=== PATIENT | female | born 1935 | race Caucasian/White ===

== ENCOUNTER 2018-02-04 13:36 | Observation (INO) | payer OTHER ==
[~2018-02-04] VITALS: Ht 152.4 cm; Wt 75.3 kg
[~2018-02-04 13:36] MED LIST: ASPI81TA28 PO; ATEN-173 PO; CLR10 PO; FLUT50SP14 NAE; FRS/40 PO; GLC/500 PO; IBUP-1050 PO; LEVO25TA PO; LISI5TAB3 PO; POTA10LI PO; PRAV40TA PO; PRLSR20 PO; TYLC/3 PO
--- NOTE | 2018-02-04 13:58 | EMERGENCY ROOM VISIT NOTE ---
History Report prepared by Pan: Itz Villarreal Under the Supervision of: Dr. Dav Castaneda M.D. First contact with patient: 13:46 Chief Complaint: DIZZY Stated Complaint: FATIGUE,DRY MOUTH,DIZZY History of Present Illness The patient is a 82 year old female who presents to the Emergency Room with complaints of constant, severe fatigue for the past week. The patient notes taking her blood pressure and pulse yesterday which were 98/49 and 51 respectively. She reports experiencing dry mouth and watery eyes. The patient feels that she is keeping up with her fluids. The patient states that she has blood work done on Monday where she was told that her blood is thin. She notes that she has not taken her Lasix for the past two days. The patient reports taking Lasix 40mg BID as a blood thinner and Coumadin secondary to her history of Afib. She has not had any changes in her medication recently. The patient denies experiencing any chest pain,shortness of breath, blood or black color in stool, fevers, chills, urinary symptoms, falls, or confusion. She reports a history of well controlled diabetes. Source of History: patient Onset: 1 week ago. Position: other (Global ) Symptom Intensity: severe Quality: other (fatigue ) Timing: constant Modifying Factors (Worsening): other (none) Modifying Factors (Relieving): other (none) Associated Symptoms: No fevers, No chills, No chest pain, No SOB, No melena , No urinary symptoms Note: Denies: Falls, confusion. Review of Systems See HPI for pertinent positives & negatives. A total of 10 systems reviewed and were otherwise negative. Past Medical & Surgical Medical Problems: (1) Chest pain (2) Nonspecific ST-T wave electrocardiographic changes Old medical records were reviewed. Nurse's notes were reviewed and I agree with. Family History No pertinent family history Social History Smoking Status: Never Smoker Drug Use: none Marital Status: Occupation Status: retired Current/Historical Medications Scheduled Aspirin (Aspirin Ec), 81 MG PO HS Atenolol (Tenormin), 50 MG PO HS Furosemide (Lasix), 40 MG PO BID Levothyroxine Sodium (Synthroid), 1 TAB PO DAILY Lisinopril (Zestril), 5 MG PO DAILY Pantoprazole (Protonix), 40 MG PO DAILY Potassium Chloride (Potassium Chloride), 1.5 TSP PO DAILY Warfarin Sod (Coumadin), 5 MG PO HS Scheduled PRN Fluticasone Propionate (Flonase Nasal [place]), 2 SPRAYS [place] DAILY PRN Loratadine (Claritin), 10 MG PO DAILY PRN for ALLERGIES Allergies Coded Allergies: Oxycodone (Verified Adverse Reaction, Unknown, "MAKES ME FEEL GOOFY", 11/05) Physical Exam Vital Signs Date Time Temp Pulse Resp B/P (MAP) Pulse Ox O2 Delivery O2 Flow Rate FiO2 02/04/18 15:19 68 18 131/73 91 Room Air 02/04/18 13:42 36.7 67 18 153/72 92 Room Air Physical Exam General: Non-ill appearing older female in no acute distress. HEENT: Normal cephalic atraumatic. Pupils are equal round and reactive to light. Extraocular movements are intact. Oropharynx is pink with moist mucous membranes. No swelling of the mouth lips or tongue. Neck: Supple with a midline trachea. No meningeal signs or stiffness, no JVD or bruits. No Stridor. Chest: Clear to auscultation bilaterally. No wheezes or rhonchi. No increased work of breathing. Heart: regular rate and rhythm. Abdomen: Soft nontender, nondistended without rebound guarding or rigidity. Extremities: No cyanosis clubbing or edema. No calf tenderness or assymetry Spine/Back. Non tender to palpation. No CVA tenderness Skin: Good turgor without rashes. Neurologic exam: Cranial nerves two through 12 are intact. Motor and sensation are intact and symmetrical throughout. Medical Decision & Procedures ER Provider Diagnostic Interpretation: Radiology results as stated below per my review and radiologist interpretation: CHEST ONE VIEW PORTABLE CLINICAL HISTORY: CHEST PAIN dyspnea COMPARISON STUDY: 11/05/2015 FINDINGS: Mild cardiomegaly. Prominent pulmonary vasculature. Diaphragms are smooth. Costophrenic angles are sharp. IMPRESSION: Congestive heart failure The above report was generated using voice recognition software. It may contain grammatical, syntax or spelling errors. Electronically signed by: Syd Ariza M.D. 02/04/2018 2:12 PM Dictated Date/Time: 02/04/2018 2:11 PM HEAD WITHOUT CONTRAST (CT) CT DOSE: 569.73 mGy.cm HISTORY: Mental status change eval for dizziness TECHNIQUE: Multiaxial CT images of the head were performed without the use of intravenous contrast. A dose lowering technique was utilized adhering to the principles of ALARA. Comparison: None. Findings: The paranasal sinuses and mastoid air cells are clear. The calvarium and skull base are intact. The ventricles and sulci are within normal limits. There is no mass, hematoma, midline shift, or acute infarct. Age-related chronic small vessel change. Impression: No acute intracranial abnormality. Age-related chronic small vessel change. The above report was generated using voice recognition software. It may contain grammatical, syntax or spelling errors. Electronically signed by: Syd Ariza M.D. 02/04/2018 2:30 PM Dictated Date/Time: 02/04/2018 2:29 PM Laboratory Results Test 02/04/18 14:10 02/04/18 14:15 02/04/18 14:21 Urine Color YELLOW Urine Appearance CLEAR (CLEAR) Urine pH 8.0 (4.5-7.5) Urine Specific [place] 1.007 (1.000-1.030) Urine Protein NEG (NEG) Urine Glucose (UA) NEG (NEG) Urine Ketones NEG (NEG) Urine Occult Blood NEG (NEG) Urine Nitrite NEG (NEG) Urine Bilirubin NEG (NEG) Urine Urobilinogen NEG (NEG) Urine Leukocyte Esterase SMALL (NEG) Urine WBC (Auto) 1-5 /hpf (0-5) Urine RBC (Auto) 0-4 /hpf (0-4) Urine Hyaline Casts (Auto) 0 /lpf (0-5) Urine Epithelial Cells (Auto) 10-20 /lpf (0-5) Urine Bacteria (Auto) NEG (NEG) Activated Partial Thromboplast Time 33.4 SECONDS (21.0-31.0) Partial Thromboplastin Ratio 1.3 Magnesium Level 2.0 mg/dl (1.8-2.4) Direct Bilirubin 0.1 mg/dl (0-0.2) Total Creatine Kinase 36 U/L (26-192) Creatine Kinase MB 0.8 ng/ml (0.5-3.6) Creatine Kinase MB Ratio 2.2 (0-3.0) Pro-B-Type Natriuretic Peptide 1646 pg/ml (0-1800) Lipase 111 U/L (73-393) Thyroid Stimulating Hormone (TSH) 2.360 uIu/ml (0.300-4.500) Thyroxine (T4) 10.1 mcg/dl (4.5-10.9) Bedside Troponin I < 0.030 ng/ml (0-0.045) Date/Time Source Procedure Growth Status 02/04/18 14:10 Urine , Clean Catch Urine Culture - Final MORE THAN THREE TYPES OF ORGANISMS OR... Complete Laboratory studies as stated above per my review. Medications Administered Medications (Trade) Dose Ordered Sig/Rosi Route Start Time Stop Time Status Last Admin Dose Admin Potassium Chloride (Klor-Con Tab) 40 meq NOW STAT PO 02/04/18 15:47 02/04/18 15:49 DC 02/04/18 16:12 40 MEQ Furosemide (Lasix Inj) 20 mg NOW STAT IV 02/04/18 16:00 02/04/18 16:01 DC 02/04/18 16:13 20 MG ECG Per My Interpretation Indication: weakness Rate (beats per minute): 64 Rhythm: normal sinus Findings: other (Old inferirior infarct changes. Nonspecific st changes. ) Comparison ECG Date: Nov 06 2015 Change: Compared to November 06 2015, non-specific st changes are now present. ED Course 1346: Past medical records reviewed. The patient was evaluated in room C5, and a complete history and physical examination were performed. 1547: Ordered Potassium Chloride 40meq PO. 1554: I offered to admit the patient for her CHF. She does not want to be admitted and will discuss her decision with her family 1600: Ordered Furosemide 20mg IV. ' 1605: The patient is willing to be admitted. 1610: I discussed the patient's case with Dr. Trevor Kemp Hospitalist. He will evaluate the patient for further treatment and care. Medical Decision Differentials include, but are not limited to; anemia, intracranial process, infection, electrolyte or metabolic abnormality. This patient comes in as described above. She was placed in room C5. She has generalized weakness and some shortness of breath mostly with exertion. She looks well on exam. She has not been feeling herself lately. IV access established, EKG, chest x-ray and CAT scan of her head was obtained. She has extensive workup for weakness. Her potassium was mildly low at 3.2 but otherwise she has no acute electrolyte or metabolic abnormalities. Her EKG does have some nonspecific ST abnormalities which do appear more pronounced when compared to old. Her chest x-ray also suggests congestive heart failure component as well. She was given IV Lasix. She has no acute neurologic deficits and a CAT scan of her head is unremarkable. She has nothing to suggest infection or sepsis. I do think she needs to be admitted for diuresis and further treatment and evaluation and cardiac evaluation. I have discussed the case with Dr. Hilario who saw the patient and will admit her for these measures. Medication Reconcilliation Current Medication List: was personally reviewed by me Blood Pressure Screening Patient's blood pressure: Normal blood pressure Consults Time Called: 1605 Consulting Physician: Dr. Trevor Kemp Hospitalist Returned Call: [phone]: I discussed the patient's case with Dr. Trevor Kemp Hospitalist. He will evaluate the patient for further treatment and care. Impression Primary Impression: Weakness Additional Impression: CHF (congestive heart failure) Scribe Attestation The scribe's documentation has been prepared under my direction and personally reviewed by me in its entirety. I confirm that the note above accurately reflects all work, treatment, procedures, and medical decision making performed by me. Departure Information Dispostion Being Evaluated By Surgeon Prescriptions Warfarin Sod (Coumadin) 5 Mg Tab 5 MG PO HS for 5 Days, #1 TAB Prov: Ralph Hilario M.D. 02/05/18 Referrals Yuridia Gutierrez M.D. (PCP) Patient Instructions My [facility] Problem Qualifiers
--- NOTE | 2018-02-04 14:13 | DIAGNOSTIC IMAGING REPORT ---
CHEST ONE VIEW PORTABLE CLINICAL HISTORY: CHEST PAIN dyspnea COMPARISON STUDY: 11/05/2015 FINDINGS: Mild cardiomegaly. Prominent pulmonary vasculature. Diaphragms are smooth. Costophrenic angles are sharp. IMPRESSION: Congestive heart failure The above report was generated using voice recognition software. It may contain grammatical, syntax or spelling errors. Electronically signed by: Syd Ariza M.D. 02/04/2018 2:12 PM Dictated Date/Time: 02/04/2018 2:11 PM
[2018-02-04 14:22] LABS: BASO % 0.1 %; BASO ABS # 0.01 K/uL (0-0.2); EOS % 0.9 %; EOS ABS # 0.07 K/uL (0-0.5); HEMATOCRIT 40.3 % (37-47); IG# 0.02 K/uL (0.00-0.02); LYMPH % 19.2 %; LYMPH ABS # 1.57 K/uL (1.2-3.4); MEAN CELL VOLUME 89.4 fL (80-100); MEAN CORPUSCULAR HEMOGLOBIN 28.8 pg (25-34); MEAN CORPUSCULAR HGB CONC 32.3 g/dl (32-36); MEAN PLATELET VOLUME 9.7 fL (7.4-10.4); MONO % 8.4 %; MONO ABS # 0.69 K/uL (0.11-0.59); NEUT % 71.2 %; NEUT ABS # 5.81 K/uL (1.4-6.5); PLATELET COUNT 226 K/uL (130-400); RED CELL DISTRIBUTION WIDTH CV 14.6 % (11.5-14.5); RED CELL DISTRIBUTION WIDTH SD 47.9 fL (36.4-46.3); WHITE BLOOD COUNT 8.17 K/uL (4.8-10.8)
[2018-02-04 14:31] LABS: INR 1.7 (0.9-1.1); PTT PATIENT 33.4 SECONDS (21.0-31.0)
--- NOTE | 2018-02-04 14:31 | DIAGNOSTIC IMAGING REPORT ---
HEAD WITHOUT CONTRAST (CT) CT DOSE: 569.73 mGy.cm HISTORY: Mental status change eval for dizziness TECHNIQUE: Multiaxial CT images of the head were performed without the use of intravenous contrast. A dose lowering technique was utilized adhering to the principles of ALARA. Comparison: None. Findings: The paranasal sinuses and mastoid air cells are clear. The calvarium and skull base are intact. The ventricles and sulci are within normal limits. There is no mass, hematoma, midline shift, or acute infarct. Age-related chronic small vessel change. Impression: No acute intracranial abnormality. Age-related chronic small vessel change. The above report was generated using voice recognition software. It may contain grammatical, syntax or spelling errors. Electronically signed by: Syd Ariza M.D. 02/04/2018 2:30 PM Dictated Date/Time: 02/04/2018 2:29 PM
[2018-02-04 14:39] LABS: ALBUMIN 3.1 gm/dl (3.4-5.0); CALCIUM 8.4 mg/dl (8.5-10.1); CREATININE 0.93 mg/dl (0.60-1.20); POTASSIUM 3.2 mmol/L (3.5-5.1)
[2018-02-04 14:50] LABS: CKMB 0.8 ng/ml (0.5-3.6); TOTAL PROTEIN 7.6 gm/dl (6.4-8.2)
[2018-02-04] MEDS ORDERED: PANT40TA PO (15:22)
[2018-02-04] MEDS ORDERED: POTASSIUM CHLORIDE 20 MEQ TABCR PO STA (15:47)
[2018-02-04] MEDS ORDERED: FUROSEMIDE 40 MG/4 ML VIAL IV STA (16:00)
[2018-02-04 16:39] VITALS: O2SAT 91; Ht 152.4 cm; Wt 75.3 kg
[2018-02-04] MEDS ORDERED: IV FLUIDS COMPLETED PRN (16:45)
--- NOTE | 2018-02-04 16:46 | History and Physical ---
History & Physical Date & Time of Service: Feb 04, 2018 at 16:44 Chief Complaint: Fatigue,Dry Mouth,Dizzy Primary Care Physician: Yuridia Gutierrez M.D. History of Present Illness Source: patient, family This is an 82 year old Female with recent cardiac history as summarized above in outpatient 12/28/17 cardiology notes by CAROL Naidu (see assessment and plan section). At that outpatient visit there were plans to do Holter monitor but this was not done yet. And patient presents to the hospital with generalized malaise (described as feel less energy and sleepy), denies chest pain, generally denies shortness of breath (but used albuterol inhaler before sleep yesterday before sleep just in case to help with breathing better with sleeping), denies home oxygen use, denies CPAP use, denies rhinorrhea, denies fever, denies significant lower extremity swelling,and found to have mild CHF exacerbation based on elevated BNP and some pulmonary infiltrates on CXR and mild lower extremity edema. Also noted to have non-specific ST changes when current EKG is compared to that of November 06, 2015 as per the ED physician however patient has had more recent 2017 EKGs as outpatient under [facility] records and Holter monitoring results in 2017. In the ED patient breathing on room air. Patient was about to be given 20 mg IV Lasix when examined by hospitalist physician Past Medical/Surgical History Medical Problems: (1) Chest pain (2) Chest wall pain (3) Nonspecific ST-T wave electrocardiographic changes Family History No pertinent family history Social History Smoking Status: Never Smoker Drug Use: none Marital Status: Occupational Status: retired Immunizations History of Influenza Vaccine: Yes Influenza Vaccine Date: Sep 02, 2015 History of Pneumococcal: Yes Allergies Coded Allergies: Oxycodone (Verified Adverse Reaction, Unknown, "MAKES ME FEEL GOOFY", 11/05) Home Medications Scheduled Aspirin (Aspirin Ec), 81 MG PO HS Atenolol (Tenormin), 50 MG PO HS Furosemide (Lasix), 40 MG PO BID Levothyroxine Sodium (Synthroid), 1 TAB PO DAILY Lisinopril (Zestril), 5 MG PO DAILY Metformin Hcl (Glucophage), 500 MG PO DAILY Omeprazole (Prilosec), 20 MG PO DAILY Pantoprazole (Protonix), 40 MG PO DAILY Potassium Chloride (Potassium Chloride), 1.5 TSP PO DAILY Scheduled PRN Fluticasone Propionate (Flonase Nasal [place]), 2 SPRAYS [place] DAILY PRN Loratadine (Claritin), 10 MG PO DAILY PRN for ALLERGIES Review of Systems Constitutional: + fatigue, No fever Eyes: No worsening of vision, No eye pain, No redness, No discharge, No diplopia, No problem reported ENT: No unusual epistaxis, No nasal symptoms, No sore throat, No trouble swallowing Respiratory: + shortness of breath, No cough, No sputum Cardiovascular: No chest pain, No edema, No palpitations Abdomen: + problem reported (abdominal discomfort after eating), No nausea, No vomiting, No diarrhea, No constipation Musculoskeletal: No joint pain, No swelling, No calf pain Genitourinary - Female: No dysuria Neurologic: No numbness/tingling Psychiatric: No substance abuse Endocrine: + fatigue Hematologic / Lymphatic: No abnormal bleeding/bruising Integumentary: No rash, No itch Physical Exam Vital Signs Date Time Temp Pulse Resp B/P (MAP) Pulse Ox O2 Delivery O2 Flow Rate FiO2 02/04/18 15:19 68 18 131/73 91 Room Air 02/04/18 13:42 36.7 67 18 153/72 92 Room Air General Appearance: WD/WN, no apparent distress Head: normocephalic, atraumatic Eyes: normal inspection, EOMI, sclerae normal ENT: normal ENT inspection, hearing grossly normal, pharynx normal Neck: supple, no adenopathy, no JVD, no carotid bruits, trachea midline Respiratory/Chest: chest non-tender, lungs clear, normal breath sounds, no respiratory distress, no accessory muscle use Cardiovascular: regular rate, rhythm, no edema, no JVD, normal peripheral pulses Abdomen/GI: normal bowel sounds, non tender, soft, no organomegaly Back: normal inspection, no muscle spasm, normal range of motion Extremities/Musculoskelatal: normal inspection, no calf tenderness, normal range of motion, + pertinent finding (trace edema of bilateral lower extremities ) Neurologic/Psych: materials intern II-XII nml as tested, alert, normal mood/affect, oriented x 3 Skin: normal color, warm/dry, no rash Diagnostics Laboratory Results Results Past 24 Hours Test 02/04/18 13:55 02/04/18 14:10 02/04/18 14:15 02/04/18 14:21 Range/Units Creatine Kinase MB Ratio 2.2 0-3.0 Urine Color YELLOW Urine Appearance CLEAR CLEAR Urine pH 8.0 4.5-7.5 Urine Specific [place] 1.007 1.000-1.030 Urine Protein NEG NEG Urine Glucose (UA) NEG NEG Urine Ketones NEG NEG Urine Occult Blood NEG NEG Urine Nitrite NEG NEG Urine Bilirubin NEG NEG Urine Urobilinogen NEG NEG Urine Leukocyte Esterase SMALL NEG Urine WBC (Auto) 1-5 0-5 /hpf Urine RBC (Auto) 0-4 0-4 /hpf Urine Hyaline Casts (Auto) 0 0-5 /lpf Urine Epithelial Cells (Auto) 10-20 0-5 /lpf Urine Bacteria (Auto) NEG NEG White Blood Count 8.17 4.8-10.8 K/uL Red Blood Count 4.51 4.2-5.4 M/uL Hemoglobin 13.0 12.0-16.0 g/dL Hematocrit 40.3 37-47 % Mean Corpuscular Volume 89.4 80-100 fL Mean Corpuscular Hemoglobin 28.8 25-34 pg Mean Corpuscular Hemoglobin Concent 32.3 32-36 g/dl Platelet Count 226 130-400 K/uL Mean Platelet Volume 9.7 7.4-10.4 fL Neutrophils (%) (Auto) 71.2 % Lymphocytes (%) (Auto) 19.2 % Monocytes (%) (Auto) 8.4 % Eosinophils (%) (Auto) 0.9 % Basophils (%) (Auto) 0.1 % Neutrophils # (Auto) 5.81 1.4-6.5 K/uL Lymphocytes # (Auto) 1.57 1.2-3.4 K/uL Monocytes # (Auto) 0.69 0.11-0.59 K/uL Eosinophils # (Auto) 0.07 0-0.5 K/uL Basophils # (Auto) 0.01 0-0.2 K/uL RDW Standard Deviation 47.9 36.4-46.3 fL RDW Coefficient of Variation 14.6 11.5-14.5 % Immature Granulocyte % (Auto) 0.2 % Immature Granulocyte # (Auto) 0.02 0.00-0.02 K/uL Prothrombin Time 18.1 9.0-12.0 SECONDS Prothromb Time International Ratio 1.7 0.9-1.1 Activated Partial Thromboplast Time 33.4 21.0-31.0 SECONDS Partial Thromboplastin Ratio 1.3 Sodium Level 138 136-145 mmol/L Potassium Level 3.2 3.5-5.1 mmol/L Chloride Level 97 98-107 mmol/L Carbon Dioxide Level 35 21-32 mmol/L Anion Gap 6.0 3-11 mmol/L Blood Urea Nitrogen 12 7-18 mg/dl Creatinine 0.93 0.60-1.20 mg/dl Est Creatinine Clear Calc Drug Dose 44.5 ml/min Estimated GFR () 67.3 Estimated GFR (Non- 58.0 BUN/Creatinine Ratio 12.6 10-20 Random Glucose 94 70-99 mg/dl Calcium Level 8.4 8.5-10.1 mg/dl Total Bilirubin 0.6 0.2-1 mg/dl Direct Bilirubin 0.1 0-0.2 mg/dl Aspartate Amino Transf (AST/SGOT) 14 15-37 U/L Alanine Aminotransferase (ALT/SGPT) 20 12-78 U/L Alkaline Phosphatase 137 45-117 U/L Total Creatine Kinase 36 26-192 U/L Creatine Kinase MB 0.8 0.5-3.6 ng/ml Pro-B-Type Natriuretic Peptide 1646 0-1800 pg/ml Total Protein 7.6 6.4-8.2 gm/dl Albumin 3.1 3.4-5.0 gm/dl Lipase 111 73-393 U/L Thyroid Stimulating Hormone (TSH) 2.360 0.300-4.500 uIu/ml Bedside Troponin I < 0.030 0-0.045 ng/ml Test 02/04/18 16:38 Range/Units Microbiology Results 02/04/18 Urine Culture, Received Pending Impression Assessment and Plan Outpatient 12/28/17 cardiology notes reviewed "Cardiac History: 1.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 Aortic valve replacement (#23 Morgan II), Ascending aorta graft replacement (#26 Gel weave), coronary artery bypass x 1 (aorta-PDA) 2.History of post operative heart failure and atrial fibrillation. 3.History of delayed healing of sternotomy and saphenous vein harvest site. 4.Recurrent atrial fibrillation observed in August 2016 resulting in acute decompensated heart failure. Referral for direct current cardioversion declined. 5.CHADS2 Score 4/6 6.Chronic coumadin anticoagulation, initiated in August 2016. 7.Hypertension 8.Dyslipidemia Last hospitalization was to [facility] November 05, 2015 to November 06, 2015 with atypical chest pain. EKG was without acute changes. Cardiac enzymes were negative. Resting echocardiogram revealed normal LV chamber size with mild concentric LVH, normal LV systolic function, EF 55%-60%, abnormal septal wall motion consistent with postoperative state. Wall motion was otherwise normal. There was grade 2 diastolic dysfunction. The bioprosthetic aortic valve was well seated with with normal gradients. Dobutamine stress echocardiogram was negative for inducible ischemia or arrhythmias prior to discharge. ASSESSMENT: 1.Chronic atrial fibrillation, ? With an adequately controlled ventricular response. 2.Chronic coumadin anticoagulation 3.Compensated diastolic heart failure signs and symptoms. 4.Aortic valvular disease, aortic root aneurysm, and ASCVD status post aortic valve replacement (#23 Morgan II), ascending aorta graft reconstruction and replacement (#26 Gel weave), coronary artery bypass x 1 (aorta-PDA) on 04/08/05. 5.Status post closure of foramen ovale on 04/08/05. 6.GERD RECOMMENDATIONS/PLAN: 1.Decrease Lisinopril to 2.5 mg/day secondary to mild hypotension (? Symptomatic ) 2.Increase Protonix to twice a day to aid GI symptoms. Recommend further evaluation if GI symptoms persist 3.24-hour holter monitor prior to next evaluation. If the ventricular response is excessive will add digoxin 125 mcg every OTHER day. 4.Retrial of statin therapy (previously unable to tolerate atorvastatin secondary to myalgias) declined. 5.TTE to be considered at follow-up. 6.Cardiology follow-up in 2-3 months or as needed. 7.ER with emergencies. " Assessment and Plan for hospital observation: This is an 82 year old Female with recent cardiac history as summarized above in outpatient 12/28/17 cardiology notes by CAROL Naidu (see above). At that outpatient visit there were plans to do Holter monitor but this was not done yet. And patient presents to the hospital with generalized malaise (described as feel less energy and sleepy), denies chest pain, generally denies shortness of breath (but used albuterol inhaler before sleep yesterday before sleep just in case to help with breathing better with sleeping), denies home oxygen use, denies CPAP use, denies rhinorrhea, denies fever, denies significant lower extremity swelling, and found to have mild CHF exacerbation based on elevated BNP and some pulmonary infiltrates on CXR and mild lower extremity edema. Also noted to have non-specific ST changes when current EKG is compared to that of November 06, 2015 as per the ED physician however patient has had more recent 2017 EKGs as outpatient under [facility] records and Holter monitoring results in 2017. In the ED patient breathing on room air. Patient was about to be given 20 mg IV Lasix when examined by hospitalist physician mild CHF exacerbation -Lasix 20 mg IV given in the ED , continue Lasix as 40 mg IV BID for now, will repeat CXR tomorrow and likely will not need to continue BID IV lasix -admission of hypokalemia, replace potassium, and monitor electrolytes while on increased diuretics -initial troponin negative, monitor patient on telemetry with 2 more troponins and trend with EKG in case there is acute coronary syndrome versus arrhythmia or conduction abnormalities -obtain echocardiogram -continue home dose atenolol and aspirin -consult [facility] affiliated inpatient Cardiology as they follow the patient as outpatient for further recommendations History of atrial fibrillation on anticoagulation -Patient takes coumadin 5 mg HS at home -admission INR 1.7, continue coumadin and trend INR, target is 2 to 3 Monitor renal function while on diuretics COPD -has albuterol inhaler at home -nebulizers as needed if shortness of breath Diabetes Mellitus -hold home dose metformin -insulin sliding scale, check [id number] history of Hypothyroidism -check TSH with T4 labs -continue home dose levothyroxine for now DVT ppx, INR 1.7 on coumadin, continue coumadin, start SCDs Full Code Family daughter [phone], Resuscitation Status VTE Prophylaxis Will order VTE Prophylaxis: Yes
[2018-02-04] MEDS ORDERED: GLUCOSE 10 TABS/TUBE PO PRN (17:00)
[2018-02-04] MEDS ORDERED: GLUCOSE 40% GEL 15 GM TUBE PO PRN (17:00)
[2018-02-04] MEDS ORDERED: HEPARIN SOD 5000 UNIT/0.5 ML CARP SQ SCH (17:00)
[2018-02-04] MEDS ORDERED: DEXTROSE 50% 50 ML SYR IV PRN (17:00)
[2018-02-04] MEDS ORDERED: GLUCAGON FOR INJ 1 MG VIAL SQ PRN (17:00)
[2018-02-04 17:15] VITALS: O2SAT 92
[2018-02-04 17:44] VITALS: BP 144/66; PULSE 63; TEMP 37; O2SAT 93
[2018-02-04] MEDS ORDERED: ALBUTEROL 0.083% NEBU SOLN 3 ML VIAL INH PRN (17:45)
[2018-02-04 19:47] VITALS: BP 121/69; PULSE 67; TEMP 37.2; O2SAT 93
[2018-02-04] MEDS ORDERED: ACETAMINOPHEN 325 MG TAB ONE (20:09)
[2018-02-04] MEDS ORDERED: ACETAMINOPHEN 325 MG TAB PO PRN (20:15)
[2018-02-04] MEDS: FUROSEMIDE INJ 40 MG in SYRINGE 0 ML IV SCH (20:26)
[2018-02-04 20:41] LABS: POTASSIUM 3.5 mmol/L (3.5-5.1)
[2018-02-04] MEDS: INSULIN ASPART 100 UNITS/ML 3 ML PEN SC SCH (21:00)
[2018-02-04] MEDS ORDERED: WARFARIN SOD 5 MG TAB PO SCH (21:00)
[2018-02-04] MEDS ORDERED: ASPIRIN 81 MG ECTAB PO SCH (21:00)
[2018-02-04] MEDS ORDERED: POTASSIUM CHLORIDE 10 MEQ TABCR PO STA (22:00)
[2018-02-04 23:24] VITALS: BP 143/77; PULSE 60; TEMP 36.9; O2SAT 93
[2018-02-05 02:38] LABS: BASO % 0.2 %; BASO ABS # 0.02 K/uL (0-0.2); EOS % 1.7 %; EOS ABS # 0.17 K/uL (0-0.5); HEMATOCRIT 38.9 % (37-47); HEMOGLOBIN 12.8 g/dL (12.0-16.0); IG# 0.04 K/uL (0.00-0.02); LYMPH % 21.9 %; LYMPH ABS # 2.15 K/uL (1.2-3.4); MEAN CORPUSCULAR HEMOGLOBIN 29.3 pg (25-34); MEAN CORPUSCULAR HGB CONC 32.9 g/dl (32-36); MEAN PLATELET VOLUME 9.4 fL (7.4-10.4); MONO % 10.8 %; MONO ABS # 1.06 K/uL (0.11-0.59); NEUT ABS # 6.36 K/uL (1.4-6.5); PLATELET COUNT 219 K/uL (130-400); RED CELL DISTRIBUTION WIDTH CV 14.5 % (11.5-14.5); RED CELL DISTRIBUTION WIDTH SD 47.5 fL (36.4-46.3)
[2018-02-05 02:56] LABS: INR 1.6 (0.9-1.1)
[2018-02-05 02:58] LABS: ALBUMIN 2.9 gm/dl (3.4-5.0); ALT/SGPT 17 U/L (12-78); AST/SGOT 12 U/L (15-37); BLOOD UREA NITROGEN 15 mg/dl (7-18); CALCIUM 8.9 mg/dl (8.5-10.1); CARBON DIOXIDE 33 mmol/L (21-32); CREATININE 0.89 mg/dl (0.60-1.20); GLUCOSE 110 mg/dl (70-99); POTASSIUM 3.7 mmol/L (3.5-5.1); SODIUM 137 mmol/L (136-145)
[2018-02-05 03:03] LABS: ALKALINE PHOSPHATASE 123 U/L (45-117); TOTAL PROTEIN 7.1 gm/dl (6.4-8.2)
[2018-02-05 04:25] VITALS: BP 108/48; PULSE 51; TEMP 37; O2SAT 93
[2018-02-05] MEDS ORDERED: LEVOTHYROXINE 25 MCG TAB PO SCH (06:00)
[2018-02-05] MEDS: INSULIN ASPART 100 UNITS/ML 3 ML PEN SC SCH ×2 (07:00→11:00)
[2018-02-05 07:37] VITALS: BP 151/67; PULSE 60; TEMP 36.8; O2SAT 92
[2018-02-05 08:47] LABS: HEMOGLOBIN A1C 6.5 % (4.5-5.6)
[2018-02-05] MEDS: FUROSEMIDE INJ 40 MG in SYRINGE 0 ML IV SCH (08:47)
[2018-02-05] MEDS ORDERED: PANTOprazole SOD 40 MG TAB PO SCH (09:00)
[2018-02-05] MEDS ORDERED: NURSING VERBAL MED ORDER ONE (09:00)
[2018-02-05] MEDS ORDERED: LISINOPRIL 5 MG TAB PO SCH ×2 (09:00→21:00)
--- NOTE | 2018-02-05 09:25 | ECHOCARDIOGRAM REPORT ---
*NOTICE TO RECEIVING [employer] This information is strictly Confidential and protected under [place] law. [place] law prohibits you from making any further disclosure of this information unless further disclosure is expressly permitted by the written consent of the person to whom it pertains or is authorized by law. A general authorization for the release of medical or other information is not sufficient for this purpose. Hospital accepts no responsibility if the information is made available to any other person, INCLUDING THE PATIENT. Interpretation Summary * Name: CHANEL COE Study Date: 02/05/2018 06:21 AM BP: 108/48 mmHg * Patient Location: [facility] HR: 64 * : 1935 (M/d/yyyy) Gender: Female Height: 60 in * Age: 82 yrs Ethnicity: CA Weight: 172 lb * Ordering Physician: Ralph Hilario * Performed By: Iza Bernstein RCS * * Reason For Study: CHF / EKG CHANGES * BSA: 1.8 m2 * The study was technically adequate. * Compared to prior study, there is no significant change. * -- Conclusions -- * Ejection Fraction = 60-65%. * There is mild concentric left ventricular hypertrophy. * Septal motion is consistent with post-operative state. * There is a bioprosthetic aortic valve. * Bioprosthetic aortic valve leaflets are poorly visualized. * No significant bioprosthetic aortic valve regurgitation. * The gradient is normal for this prosthetic aortic valve. * There is mild tricuspid regurgitation. Procedure Details * A complete two-dimensional transthoracic echocardiogram was performed (2D, M-mode, Doppler and color flow Doppler). Left Ventricle * The left ventricle is normal in size. * There is mild concentric left ventricular hypertrophy. * The basal septum is thickened and angulated consistent with sigmoid septum. * Left ventricular systolic function is normal. * Ejection Fraction = 60-65%. * Septal motion is consistent with post-operative state. Right Ventricle * The right ventricle is normal size. * The right ventricular systolic function is normal as assessed by tricuspid annular plane systolic excursion (TAPSE) (normal >1.5 cm). Atria * The left atrium is mildly dilated. * Right atrial size is normal. * There is no evidence of atrial septal defect, but resolution does not allow assessment for a patent foramen ovale. Mitral Valve * There is mild mitral annular calcification. * There is no mitral valve stenosis. * There is trace mitral regurgitation. Tricuspid Valve * The tricuspid valve is normal. * There is no tricuspid stenosis. * There is mild tricuspid regurgitation. * Doppler findings do not suggest pulmonary hypertension. Aortic Valve * There is a bioprosthetic aortic valve. * Bioprosthetic aortic valve leaflets are poorly visualized. No significant bioprosthetic aortic valve regurgitation. * The gradient is normal for this prosthetic aortic valve. Pulmonic Valve * The pulmonary valve is inadequately visualized, but the Doppler data is adequate for interpretation. * There is no pulmonic valvular stenosis. * Trace pulmonic valvular regurgitation. Great Vessels * The aortic root and proximal ascending aorta are normal sized. Pericardium/Pleural * There is no pericardial effusion. Great Vessels * Normal inferior vena cava diameter and respiratory variation suggests normal central venous pressure. Left Ventricular Diastolic Function * Pulse wave TDI of the anterior and posterior mitral annulas demonstrates abnormal LV relaxation MMode 2D Measurements and Calculations IVSd 1.2 cm IVSs 1.5 cm LVIDd 4.3 cm LVIDs 2.6 cm LVPWd 1.3 cm LVPWs 1.4 cm IVS/LVPW 0.91 FS 40.2 % EDV(Teich) 83.9 ml ESV(Teich) 24.2 ml EF(Teich) 71.2 % EDV(cubed) 80.5 ml ESV(cubed) 17.2 ml EF(cubed) 78.6 % % IVS thick 33.2 % % LVPW thick 12.1 % LV mass(C)d 188.3 grams LV mass(C)dI 107.6 grams/m\S\2 LV mass(C)s 127.7 grams LV mass(C)sI 72.9 grams/m\S\2 SV(Teich) 59.7 ml SI(Teich) 34.1 ml/m\S\2 SV(cubed) 63.3 ml SI(cubed) 36.2 ml/m\S\2 Ao root diam 2.8 cm Ao root area 6.2 cm\S\2 LA dimension 3.9 cm LA/Ao 1.4 LVOT diam 2.2 cm LVOT area 3.7 cm\S\2 LVAd ap4 30.0 cm\S\2 LVLd ap4 7.7 cm EDV(MOD-sp4) 93.4 ml EDV(sp4-el) 99.0 ml LVAs ap4 18.8 cm\S\2 LVLs ap4 7.0 cm ESV(MOD-sp4) 40.8 ml ESV(sp4-el) 42.9 ml EF(MOD-sp4) 56.4 % EF(sp4-el) 56.7 % LVAd ap2 27.0 cm\S\2 LVLd ap2 6.7 cm EDV(MOD-sp2) 87.4 ml EDV(sp2-el) 92.4 ml LVAs ap2 17.1 cm\S\2 LVLs ap2 6.2 cm ESV(MOD-sp2) 39.1 ml ESV(sp2-el) 40.5 ml EF(MOD-sp2) 55.2 % EF(sp2-el) 56.2 % LVLd %diff -15.95 % EDV(MOD-bp) 97.5 ml LVLs %diff -14.12 % ESV(MOD-bp) 42.8 ml EF(MOD-bp) 56.1 % SV(MOD-sp4) 52.6 ml SI(MOD-sp4) 30.1 ml/m\S\2 SV(MOD-sp2) 48.3 ml SI(MOD-sp2) 27.6 ml/m\S\2 SV(MOD-bp) 54.7 ml SI(MOD-bp) 31.3 ml/m\S\2 SV(sp4-el) 56.1 ml SI(sp4-el) 32.0 ml/m\S\2 SV(sp2-el) 51.9 ml SI(sp2-el) 29.6 ml/m\S\2 Doppler Measurements and Calculations MV E max stalin 144.5 cm/sec MV A max stalin 57.7 cm/sec MV E/A 2.5 MV P1/2t max stalin 154.4 cm/sec MV P1/2t 72.3 msec MVA(P1/2t) 3.0 cm\S\2 MV dec slope 625.9 cm/sec\S\2 MV dec time 0.20 sec Ao V2 max 166.9 cm/sec Ao max PG 11.1 mmHg Ao max PG (full) 7.2 mmHg TR(V,A) 2.2 cm\S\2 TR(V,D) 2.2 cm\S\2 LV V1 max PG 4.0 mmHg LV V1 max 99.8 cm/sec MR max stalin 445.2 cm/sec MR max PG 79.3 mmHg PA V2 max 94.9 cm/sec PA max PG 3.6 mmHg TR max stalin 247.1 cm/sec
--- NOTE | 2018-02-05 10:13 | Cardiology Consultation ---
Cardiology Consultation Date of Service Feb 05, 2018. (Zaida Stallings PA-C) Cardiology Consultation Requesting Physician: Dr. Hilario Attending Lead Level Designer: Dr. Bello History of Present Illness: Atiya Short is an 82 year old female who is followed by Lourdes Naidu PA-C of [facility] as an outpatient. She presented to [place] yesterday for evaluation for generalized complaints of "weakness, fatigue and not feeling well" x 1 week. She denies specific complaints of recent chest pain. She reports chronic dyspnea, relatively unchanged. She notes chronic cough, unchanged. No recent worsening LE edema or weight gain at home. Weight is down from last clinic evaluation. She reports intermittent dizziness with hypotensive readings at home. No syncope. She admits to poor PO intake of food/drinks recently. Lisinopril had been reduced last office visit due to hypotension. She was also to have 24 hour Holter to assess afib rates, but this was not completed. She believed she had an 'infection" as she was just "run down". No urinary symptoms. No fever or chills. she reports chronic 2-3 pillow orthopnea, unchanged. She reports she does not sleep well at night and therefore very fatigued during the day. In ER, chest xray read as mild CHF. BNP normal limits for age. EKG revealed non specific ST/T wave abnormality and demonstrated sinus bradycardia, no significant change from previous. Cardiac enzymes unremarkable. WBC and Hbg ok. She was treated with IV furosemide and supplemental potassium. At time of consult, patient reports not sleeping well and is very fatigued, but otherwise denies acute complaints of chest pain, SOB, orthopnea, PND or increased edema. No dizziness, palpitations, syncope or near syncope. No fever, cough, chills. Review of systems: Complete Review of Systems is as stated above or negative. PMH/Cardiac History: 1. 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 Aortic valve replacement (#23 Morgan II), Ascending aorta graft replacement (#26 Gel weave), coronary artery bypass x 1 (aorta-PDA) 2. History of post operative heart failure and atrial fibrillation. 3. History of delayed healing of sternotomy and saphenous vein harvest site. 4. Recurrent atrial fibrillation observed in August 2016 resulting in acute decompensated heart failure. Referral for direct current cardioversion declined. 5. CHADS2 Score 01/19 6. Chronic Coumadin anticoagulation, initiated in August 2016. 7. Hypertension 8. Dyslipidemia 9. Breast CA 10.COPD, moderate (HCC) 11. Chronic diastolic HF (heart failure) ([facility]) I50.32 12. Type 2 diabetes mellitus with diabetic neuropathy, unspecified ([facility]) E11.40 Past Surgical History: Procedure Laterality Date CATHETERIZE LEFT HEART THRU SKIN 02/24/05 severe aortic stenosis and CAD - [facility] - Dr. Osborne CORONARY ARTERY BYPASS, SINGLE 04/08/05 " DIST FIB FX W/O MAN 07/15/96 Ankle Fx left lateral malleolar DRAINAGE OF RECTAL ABSCESS 01/06/98 Dr. Peterson LAPAROSCOPY TOTAL HYSTX, UTERUS 250GM OR LESS TUBE/OVARY 11/05/2013 LAPAROSCOPIC HYSTERECTOMY REMOVAL TUBES AND OVARIES FOR UTERUS 250GM OR LESS performed by Lexis Bernstein, at OR [facility] DRAINAGE BREAST CYST 02/06/97 Breast Biopsy left REMOVAL OF BREAST, MODIFIED RADICAL Left 02/26/97 Mastectomy, Mod Radical left REPAIR W SYNTH GRAFT,CH W/BYPA " " REPLACEMENT AORTIC VALVE, BYPASS WITH PROSTHETIC VALVE 04/08/05 AVR#[id number],AscAortGraft,PDA,CABx1 - [place] SIGMOIDOSCOPY, DIAGNOSTIC 03/16/98 normal Family History: Mother had an [place] at 63, at age 80 with CHF. Father had a CVA in his 70's. Two brothers, one killed in an accident. The other at 80 with multiple medical problems. Three sisters without cardiac problems. Two sons and three daughters without cardiac issues. Social History: Prior tobacco abuse, quit in 2004 She smoked for 40 years, up to 1 ppd. Alcohol: None anymore. She quit drinking in 2004. . Lives alone. Retired [employer] Inspector, Natalie Escamilla Review of patient's allergies indicates: Allergen Reactions Percocet SOB Current Outpatient Prescriptions Reported Home Medications Medications Dose Route/Sig Max Daily Dose Days Date Category Protonix (Pantoprazole Sodium) 40 Mg Tab 40 Mg PO DAILY 02/04/18 Reported Synthroid (Levothyroxine Sodium) 25 Mcg Tab 1 Tab PO DAILY 30 11/05/15 Reported Tenormin (Atenolol) 25 Mg Tab 50 Mg PO HS 11/05/15 Reported Aspirin Ec (Aspirin) 81 Mg Tab 81 Mg PO HS 10/29/13 Reported Claritin (Loratadine) 10 Mg Tab 10 Mg PO DAILY PRN 10/29/13 Reported Flonase Nasal [place] (Fluticasone Propionate) 120 Sprays/6000 Mcg Inha 2 Sprays [place] DAILY PRN 10/29/13 Reported Prilosec (Omeprazole) 20 Mg Capcr 20 Mg PO DAILY 10/29/13 Reported Lasix (Furosemide) 40 Mg Tab 40 Mg PO BID 10/29/13 Reported Glucophage (Metformin Hcl) 500 Mg Tab 500 Mg PO DAILY 10/29/13 Reported Zestril (Lisinopril) 5 Mg Tab 5 Mg PO DAILY 10/29/13 Reported Potassium Chloride 20 Meq/15 Ml Elix 1.5 Tsp PO DAILY 10/29/13 Reported OBJECTIVE/PHYSICAL EXAMINATION: Last 8 Hrs Date Time Temp Pulse Resp B/P (MAP) Pulse Ox O2 Delivery O2 Flow Rate FiO2 02/05/18 07:37 36.8 60 20 151/67 (95) 92 Room Air 02/05/18 04:25 37.0 51 21 108/48 (68) 93 Room Air 02/05/18 04:00 Room Air GEN: A+Ox3. NAD Conjunctiva pink, sclera clear. ? Right carotid bruit versus transmitted systolic ejection murmur. JVD. Heart: Irregularly irregular in the lower 90's. Grade II/ systolic ejection murmur. No diastolic murmur. Normal S1. Normal S2. No S3. No rub. PMI is nondisplaced. Lungs: Diminished but clear. Abdomen: +BS. Soft. Nontender. No masses or organomegaly. Extremities: Mild edema. No clubbing. No cyanosis. Limited neurological examination is without focal deficits. Pulses: radial=2/4, posterior tibial=2/4. DATA: EKG on admission NSR at 64 bpm, 1st degree AV block RSR, consistent with right conduction delay ST/T wave abnormality in inferior and anterior leads. Repeat EKG this AM 02/05/18: Sinus bradycardia at 59 bpm, 1st degree AV block. ST/T wave abnormality in anterior leads, improving Telemetry reviewed - NSR, Sinus bradycardia in the 50's. one short episode of PAF occurring last evening last about 15 beats. Imaging: Head CT - no acute abnormalities Chest xray: mild pulm vascular congestion Prior Data from 10/2015 - Echo completed at [place] - normal LV chamber size with mild concentric LVH, normal LV systolic function, EF 55%-60%, abnormal septal wall motion consistent with postoperative state. Wall motion was otherwise normal. There was grade 2 diastolic dysfunction. The bioprosthetic aortic valve was well seated with with normal gradients. Dobutamine stress echocardiogram was negative for inducible ischemia ASSESSMENT: 1. Generalized fatigue/malaise/weakness 2. Possible mild decompensated diastolic HF, improved with several doses of IV furosemide 3. Mild ST/T wave abnormality in anterior leads. Negative cardiac enzymes. No chest pain 4. paroxysmal atrial fib, currently NSR on beta faheem and chronic anticoagulation 5. History of aortic stenosis, aortic root aneurysm, and ASCVD status post aortic valve replacement (#23 Morgan II), ascending aorta graft reconstruction and replacement (#26 Gel weave), coronary artery bypass x 1 (aorta-PDA) on . 6. Status post closure of foramen ovale on 04/08/05. 7. Statin intolerance, patient declined retrial in the past 8. Hypertension - with recent hypotension noted. RECOMMENDATIONS/PLAN: 1. Patient does not examine as volume overload currently. Would transition back to oral diuretics today to prevent volume depletion 2. await echo results 3. Given mild non specific ST/T wave changes in anterior leads, consider nuclear stress test (inpatient vs outpatient). Cardiac enzymes unremarkable. 4. consider sleep med evaluation 5. Agree with increasing lisinopril back to 5 mg for elevated BP Case to be discussed with Dr. Bello. Will follow. (Zaida Stallings, FREDDYC) Cardiology Attending Physician: Patient seen and examined at the bedside. Denies chest discomfort or unusual shortness of breath. Reports fatigue and malaise. States she suffered a gastrointestinal illness approximately 3 weeks ago and has not recovered since that time. Functional opacity unchanged. No orthopnea, PND, or lower extremity edema. She is able to sleep for 24 hours a night prior to awakening for urination. No palpitations, lightheadedness, dizziness, syncope, or near syncope. Family present at bedside. PE: VSS. gen: NAD, AAOx3. heart: reg, Normal S1S2. Lungs: clear B/L. No R/R/W. Ext: No clubbing, cyanosis, or edema. A/P: Agree with above PA-C history, physical exam, assessment and plan. Recommend outpatient Lexiscan nuclear stress testing for further risk stratification. No further inpatient cardiac testing at this time. Cardiology will sign off. Please call with questions. Reji Bello DO, FACC (Yogi Bello DO)
--- NOTE | 2018-02-05 11:35 | DIAGNOSTIC IMAGING REPORT ---
CHEST 2 VIEWS ROUTINE CLINICAL HISTORY: follow up CXR for CHF after diuresis COMPARISON STUDY: Chest radiograph February 04, 2018. FINDINGS: Note is made of median sternotomy wires and a prosthetic cardiac valve, likely aortic. Moderate cardiomegaly is noted. There is no pneumothorax or pleural effusion. No consolidation is identified. Linear left basilar opacity is suggestive of atelectasis. Pulmonary edema has improved since previous exam. IMPRESSION: Interval improvement in pulmonary edema. Electronically signed by: Pj Kovacs M.D. 02/05/2018 11:33 AM Dictated Date/Time: 02/05/2018 11:32 AM
[2018-02-05 11:37] VITALS: BP 160/90; PULSE 62; TEMP 36.4; O2SAT 92
[2018-02-05] MEDS ORDERED: CMD5 PO (13:20)
--- NOTE | 2018-02-05 13:22 | Progress Note ---
Internal Med Progress Note Date of Service: Feb 05, 2018. Provider Documentation: SUBJECTIVE: Patient breathing on room air. Denies shortness of breath. Denies chest pain OBJECTIVE: General Appearance: WD/WN, no apparent distress Head: normocephalic, atraumatic Eyes: normal inspection, EOMI, sclerae normal ENT: normal ENT inspection, hearing grossly normal, pharynx normal Neck: supple, no adenopathy, no JVD, no carotid bruits, trachea midline Respiratory/Chest: chest non-tender, lungs clear, normal breath sounds, no respiratory distress, no accessory muscle use Cardiovascular: regular rat Abdomen/GI: normal bowel sounds, non tender, soft Back: normal inspection, no muscle spasm, normal range of motion Extremities/Musculoskelatal: normal inspection, no calf tenderness, normal range of motion ASSESSMENT & PLAN: Fatigue secondary to mild decompensated diastolic HF, improved with several doses of IV furosemide -admission "CXR Mild cardiomegaly. Prominent pulmonary vasculature. Diaphragms are smooth. Costophrenic angles are sharp. IMPRESSION: Congestive heart failure " -admission BNP 1646 -patient received IV Lasix on ED presentation and overnight and on discharge day -follow up CXR: Pulmonary edema has improved since previous exam. -patient to be discharged on her home dose oral diuretic medication -patient encouraged to limit salty foods Mild ST/T wave abnormality in anterior leads. Negative cardiac enzymes. No chest pain -Dr. Johnson, business professor, recommend outpatient Lexiscan nuclear stress testing for further risk stratification. No further inpatient cardiac testing at this time. Outpatient Lexiscan and sleep medicine evaluation can be arranged by primary care doctor History of atrial fibrillation on anticoagulation -admission INR 1.7 and 5 mg coumadin was given with INR 1.6 on discharge day -as per patient she had been taking less coumadin recently because her INR was high before -patient should take 5 mg coumadin daily for 5 days or at least until next INR check for adjustments -[facility] appointment line [phone] COPD history -has albuterol inhaler at home -Patient should follow up with primary care doctor whether albuterol is sufficient -consider sleep med evaluation as outpatient as per cardiology Diabetes Mellitus HbA1c 6.5 checked in the hospital -continue metformin as outpatient history of Hypothyroidism -check TSH 2.36 with T4 10.1 while on 25 mcg daily Levothyroxine -continue home dose levothyroxine and follow up with primary care doctor Patient is discharged to home with follow up to 02/06/2018 6:15 PM [facility] 02/09/2018 11:40 AM Mahesh Thomason MD Internal Medicine [facility] (Outpatient Lexiscan and sleep medicine evaluation can be arranged by primary care doctor) [facility] appointment line [phone] for any scheduling reasons patient should take 5 mg coumadin daily for 5 days or at least until next INR check for adjustments Vital Signs: Date Time Temp Pulse Resp B/P (MAP) Pulse Ox O2 Delivery O2 Flow Rate FiO2 02/05/18 11:45 Room Air 02/05/18 11:37 36.4 62 20 160/90 (113) 92 Room Air 02/05/18 07:37 36.8 60 20 151/67 (95) 92 Room Air 02/05/18 07:30 Room Air 02/05/18 04:25 37.0 51 21 108/48 (68) 93 Room Air 02/05/18 04:00 Room Air 02/05/18 00:01 Room Air 02/04/18 23:24 36.9 60 18 143/77 (99) 93 Room Air 02/04/18 20:00 Room Air 02/04/18 19:47 37.2 67 18 121/69 (86) 93 Room Air 02/04/18 17:44 37.0 63 18 144/66 (92) 93 Room Air 02/04/18 17:15 36.7 67 18 139/68 92 02/04/18 17:13 67 18 139/68 92 02/04/18 16:39 91 Room Air 02/04/18 15:19 68 18 131/73 91 Room Air 02/04/18 13:42 36.7 67 18 153/72 92 Room Air Lab Results: Results Past 24 Hours Test 02/04/18 13:55 02/04/18 14:10 02/04/18 14:15 02/04/18 14:21 Range/Units Creatine Kinase MB Ratio 2.2 0-3.0 Urine Color YELLOW Urine Appearance CLEAR CLEAR Urine pH 8.0 4.5-7.5 Urine Specific [place] 1.007 1.000-1.030 Urine Protein NEG NEG Urine Glucose (UA) NEG NEG Urine Ketones NEG NEG Urine Occult Blood NEG NEG Urine Nitrite NEG NEG Urine Bilirubin NEG NEG Urine Urobilinogen NEG NEG Urine Leukocyte Esterase SMALL NEG Urine WBC (Auto) 1-5 0-5 /hpf Urine RBC (Auto) 0-4 0-4 /hpf Urine Hyaline Casts (Auto) 0 0-5 /lpf Urine Epithelial Cells (Auto) 10-20 0-5 /lpf Urine Bacteria (Auto) NEG NEG White Blood Count 8.17 4.8-10.8 K/uL Red Blood Count 4.51 4.2-5.4 M/uL Hemoglobin 13.0 12.0-16.0 g/dL Hematocrit 40.3 37-47 % Mean Corpuscular Volume 89.4 80-100 fL Mean Corpuscular Hemoglobin 28.8 25-34 pg Mean Corpuscular Hemoglobin Concent 32.3 32-36 g/dl Platelet Count 226 130-400 K/uL Mean Platelet Volume 9.7 7.4-10.4 fL Neutrophils (%) (Auto) 71.2 % Lymphocytes (%) (Auto) 19.2 % Monocytes (%) (Auto) 8.4 % Eosinophils (%) (Auto) 0.9 % Basophils (%) (Auto) 0.1 % Neutrophils # (Auto) 5.81 1.4-6.5 K/uL Lymphocytes # (Auto) 1.57 1.2-3.4 K/uL Monocytes # (Auto) 0.69 0.11-0.59 K/uL Eosinophils # (Auto) 0.07 0-0.5 K/uL Basophils # (Auto) 0.01 0-0.2 K/uL RDW Standard Deviation 47.9 36.4-46.3 fL RDW Coefficient of Variation 14.6 11.5-14.5 % Immature Granulocyte % (Auto) 0.2 % Immature Granulocyte # (Auto) 0.02 0.00-0.02 K/uL Prothrombin Time 18.1 9.0-12.0 SECONDS Prothromb Time International Ratio 1.7 0.9-1.1 Activated Partial Thromboplast Time 33.4 21.0-31.0 SECONDS Partial Thromboplastin Ratio 1.3 Sodium Level 138 136-145 mmol/L Potassium Level 3.2 3.5-5.1 mmol/L Chloride Level 97 98-107 mmol/L Carbon Dioxide Level 35 21-32 mmol/L Anion Gap 6.0 3-11 mmol/L Blood Urea Nitrogen 12 7-18 mg/dl Creatinine 0.93 0.60-1.20 mg/dl Est Creatinine Clear Calc Drug Dose 44.5 ml/min Estimated GFR () 67.3 Estimated GFR (Non- 58.0 BUN/Creatinine Ratio 12.6 10-20 Random Glucose 94 70-99 mg/dl Calcium Level 8.4 8.5-10.1 mg/dl Magnesium Level 2.0 1.8-2.4 mg/dl Total Bilirubin 0.6 0.2-1 mg/dl Direct Bilirubin 0.1 0-0.2 mg/dl Aspartate Amino Transf (AST/SGOT) 14 15-37 U/L Alanine Aminotransferase (ALT/SGPT) 20 12-78 U/L Alkaline Phosphatase 137 45-117 U/L Total Creatine Kinase 36 26-192 U/L Creatine Kinase MB 0.8 0.5-3.6 ng/ml Pro-B-Type Natriuretic Peptide 1646 0-1800 pg/ml Total Protein 7.6 6.4-8.2 gm/dl Albumin 3.1 3.4-5.0 gm/dl Lipase 111 73-393 U/L Thyroid Stimulating Hormone (TSH) 2.360 0.300-4.500 uIu/ml Thyroxine (T4) 10.1 4.5-10.9 mcg/dl Bedside Troponin I < 0.030 0-0.045 ng/ml Test 02/04/18 17:40 02/04/18 20:14 02/04/18 20:57 02/05/18 02:24 Range/Units Bedside Glucose 103 124 70-90 mg/dl Potassium Level 3.5 3.7 3.5-5.1 mmol/L Estimated Average Glucose 140 mg/dl Hemoglobin A1c 6.5 4.5-5.6 % Troponin I < 0.015 < 0.015 0-0.045 ng/ml White Blood Count 9.80 4.8-10.8 K/uL Red Blood Count 4.37 4.2-5.4 M/uL Hemoglobin 12.8 12.0-16.0 g/dL Hematocrit 38.9 37-47 % Mean Corpuscular Volume 89.0 80-100 fL Mean Corpuscular Hemoglobin 29.3 25-34 pg Mean Corpuscular Hemoglobin Concent 32.9 32-36 g/dl Platelet Count 219 130-400 K/uL Mean Platelet Volume 9.4 7.4-10.4 fL Neutrophils (%) (Auto) 65.0 % Lymphocytes (%) (Auto) 21.9 % Monocytes (%) (Auto) 10.8 % Eosinophils (%) (Auto) 1.7 % Basophils (%) (Auto) 0.2 % Neutrophils # (Auto) 6.36 1.4-6.5 K/uL Lymphocytes # (Auto) 2.15 1.2-3.4 K/uL Monocytes # (Auto) 1.06 0.11-0.59 K/uL Eosinophils # (Auto) 0.17 0-0.5 K/uL Basophils # (Auto) 0.02 0-0.2 K/uL RDW Standard Deviation 47.5 36.4-46.3 fL RDW Coefficient of Variation 14.5 11.5-14.5 % Immature Granulocyte % (Auto) 0.4 % Immature Granulocyte # (Auto) 0.04 0.00-0.02 K/uL Prothrombin Time 16.3 9.0-12.0 SECONDS Prothromb Time International Ratio 1.6 0.9-1.1 Sodium Level 137 136-145 mmol/L Chloride Level 99 98-107 mmol/L Carbon Dioxide Level 33 21-32 mmol/L Anion Gap 5.0 3-11 mmol/L Blood Urea Nitrogen 15 7-18 mg/dl Creatinine 0.89 0.60-1.20 mg/dl Est Creatinine Clear Calc Drug Dose 46.5 ml/min Estimated GFR () 70.9 Estimated GFR (Non- 61.2 BUN/Creatinine Ratio 16.5 10-20 Random Glucose 110 70-99 mg/dl Calcium Level 8.9 8.5-10.1 mg/dl Total Bilirubin 0.6 0.2-1 mg/dl Aspartate Amino Transf (AST/SGOT) 12 15-37 U/L Alanine Aminotransferase (ALT/SGPT) 17 12-78 U/L Alkaline Phosphatase 123 45-117 U/L Total Protein 7.1 6.4-8.2 gm/dl Albumin 2.9 3.4-5.0 gm/dl Globulin 4.2 2.5-4.0 gm/dl Albumin/Globulin Ratio 0.7 0.9-2 Test 02/05/18 06:31 02/05/18 11:25 Range/Units Bedside Glucose 106 106 70-90 mg/dl Microbiology Results 02/04/18 Urine Culture, Received Pending
--- NOTE | 2018-02-05 13:45 | Discharge Instructions ---
Discharge Instructions Date of Service Feb 05, 2018. Admission Reason for Admission: Chf, Nonspecific St-T Wave Electrocardiographic Ch Discharge Discharge Diagnosis / Problem: Fatigue secondary to mild decompensated diastolic HF Discharge Goals Goal(s): Improve function, Increase independence, Improve disease control Activity Recommendations Activity Limitations: per Instructions/Follow-up section Shower/Bathe: no limitations . Instructions / Follow-Up Instructions / Follow-Up Fatigue secondary to mild decompensated diastolic HF, improved with several doses of IV furosemide -admission "CXR Mild cardiomegaly. Prominent pulmonary vasculature. Diaphragms are smooth. Costophrenic angles are sharp. IMPRESSION: Congestive heart failure " -admission BNP 1646 -patient received IV Lasix on ED presentation and overnight and on discharge day -follow up CXR: Pulmonary edema has improved since previous exam. -patient to be discharged on her home dose oral diuretic medication -patient encouraged to limit salty foods Mild ST/T wave abnormality in anterior leads. Negative cardiac enzymes. No chest pain -Dr. Johnson, supervisor grinding, recommend outpatient Lexiscan nuclear stress testing for further risk stratification. No further inpatient cardiac testing at this time. Outpatient Lexiscan and sleep medicine evaluation can be arranged by primary care doctor History of atrial fibrillation on anticoagulation -admission INR 1.7 and 5 mg coumadin was given with INR 1.6 on discharge day -as per patient she had been taking less coumadin recently because her INR was high before -patient should take 5 mg coumadin daily for 5 days or at least until next INR check for adjustments -[facility] appointment line [phone] COPD history -has albuterol inhaler at home -Patient should follow up with primary care doctor whether albuterol is sufficient -consider sleep med evaluation as outpatient as per cardiology Diabetes Mellitus HbA1c 6.5 checked in the hospital -continue metformin as outpatient history of Hypothyroidism -check TSH 2.36 with T4 10.1 while on 25 mcg daily Levothyroxine -continue home dose levothyroxine and follow up with primary care doctor Patient is discharged to home with follow up to 02/06/2018 6:15 PM [facility] 02/09/2018 11:40 AM Mahesh Thomason MD Internal Medicine [facility] (Outpatient Lexiscan and sleep medicine evaluation can be arranged by primary care doctor) [facility] appointment line [phone] for any scheduling reasons patient should take 5 mg coumadin daily for 5 days or at least until next INR check for adjustments Call your Primary Care doctor if any of the following symptoms or problems start or get worse: * Shortness of breath or difficulty breathing * Wake up at night short of breath * Chest pain * Cough * Swelling of your hands, feet, or legs * More fatigued or tired with your normal activity * Palpitations - sudden fast heart beats WEIGHT * Weigh yourself every morning after using the bathroom. * Use the same scale. * Wear the same amount of clothing. * Write your weight down on a chart. * Call your Primary Care doctor if you gain more than 2-3 pounds in 1-2 days. MEDICATIONS * Use this discharge instruction sheet for medication instructions. * Take your medications at the time your doctor ordered. * Do not skip a dose of your medicines. * If you miss a dose of medicine, take it as soon as possible, but DO NOT DOUBLE A DOSE. * Read your medicine information when you get home. * Know all of the side effects of your medicine. If in doubt, ask your pharmacist * Call your Primary Care doctor's office if you have any side effects. * Be sure all of your doctors know what medicine and herbs you take (including cold, flu, and herbal medicine). Take the following with you to your follow-up doctor appointments: * Weight Chart * Medication List * List of questions Do not drink excessive alcohol, beer or wine. Current Hospital Diet Patient's current hospital diet: Diabetes Type 2 Diet, AHA Diet (Heart Healthy) Discharge Diet Recommended Diet: AHA Diet (Heart Healthy), Diabetes Type 2 Diet, N/A (low salt ) Pending Studies Studies pending at discharge: no Laboratory Results 02/05/18 02:24 Red Blood Count 4.37, Mean Corpuscular Volume 89.0, Mean Corpuscular Hemoglobin 29.3, Mean Corpuscular Hemoglobin Concent 32.9, Mean Platelet Volume 9.4, Neutrophils (%) (Auto) 65.0, Lymphocytes (%) (Auto) 21.9, Monocytes (%) (Auto) 10.8, Eosinophils (%) (Auto) 1.7, Basophils (%) (Auto) 0.2, Neutrophils # (Auto ) 6.36, Lymphocytes # (Auto) 2.15, Monocytes # (Auto) 1.06, Eosinophils # (Auto ) 0.17, Basophils # (Auto) 0.02 02/05/18 02:24 Test 02/04/18 14:10 02/04/18 14:15 02/04/18 14:21 02/04/18 20:14 Urine Color YELLOW Urine Appearance CLEAR (CLEAR) Urine pH 8.0 (4.5-7.5) Urine Specific [place] 1.007 (1.000-1.030) Urine Protein NEG (NEG) Urine Glucose (UA) NEG (NEG) Urine Ketones NEG (NEG) Urine Occult Blood NEG (NEG) Urine Nitrite NEG (NEG) Urine Bilirubin NEG (NEG) Urine Urobilinogen NEG (NEG) Urine Leukocyte Esterase SMALL (NEG) Urine WBC (Auto) 1-5 /hpf (0-5) Urine RBC (Auto) 0-4 /hpf (0-4) Urine Hyaline Casts (Auto) 0 /lpf (0-5) Urine Epithelial Cells (Auto) 10-20 /lpf (0-5) Urine Bacteria (Auto) NEG (NEG) Activated Partial Thromboplast Time 33.4 SECONDS (21.0-31.0) Partial Thromboplastin Ratio 1.3 Magnesium Level 2.0 mg/dl (1.8-2.4) Direct Bilirubin 0.1 mg/dl (0-0.2) Total Creatine Kinase 36 U/L (26-192) Creatine Kinase MB 0.8 ng/ml (0.5-3.6) Creatine Kinase MB Ratio 2.2 (0-3.0) Pro-B-Type Natriuretic Peptide 1646 pg/ml (0-1800) Lipase 111 U/L (73-393) Thyroid Stimulating Hormone (TSH) 2.360 uIu/ml (0.300-4.500) Thyroxine (T4) 10.1 mcg/dl (4.5-10.9) Bedside Troponin I < 0.030 ng/ml (0-0.045) Estimated Average Glucose 140 mg/dl Hemoglobin A1c 6.5 % (4.5-5.6) Test 02/05/18 02:24 02/05/18 11:25 White Blood Count 9.80 K/uL (4.8-10.8) Red Blood Count 4.37 M/uL (4.2-5.4) Hemoglobin 12.8 g/dL (12.0-16.0) Hematocrit 38.9 % (37-47) Mean Corpuscular Volume 89.0 fL (80-100) Mean Corpuscular Hemoglobin 29.3 pg (25-34) Mean Corpuscular Hemoglobin Concent 32.9 g/dl (32-36) Platelet Count 219 K/uL (130-400) Mean Platelet Volume 9.4 fL (7.4-10.4) Neutrophils (%) (Auto) 65.0 % Lymphocytes (%) (Auto) 21.9 % Monocytes (%) (Auto) 10.8 % Eosinophils (%) (Auto) 1.7 % Basophils (%) (Auto) 0.2 % Neutrophils # (Auto) 6.36 K/uL (1.4-6.5) Lymphocytes # (Auto) 2.15 K/uL (1.2-3.4) Monocytes # (Auto) 1.06 K/uL (0.11-0.59) Eosinophils # (Auto) 0.17 K/uL (0-0.5) Basophils # (Auto) 0.02 K/uL (0-0.2) RDW Standard Deviation 47.5 fL (36.4-46.3) RDW Coefficient of Variation 14.5 % (11.5-14.5) Immature Granulocyte % (Auto) 0.4 % Immature Granulocyte # (Auto) 0.04 K/uL (0.00-0.02) Prothrombin Time 16.3 SECONDS (9.0-12.0) Prothromb Time International Ratio 1.6 (0.9-1.1) Anion Gap 5.0 mmol/L (3-11) Est Creatinine Clear Calc Drug Dose 46.5 ml/min Estimated GFR () 70.9 Estimated GFR (Non- 61.2 BUN/Creatinine Ratio 16.5 (10-20) Calcium Level 8.9 mg/dl (8.5-10.1) Total Bilirubin 0.6 mg/dl (0.2-1) Aspartate Amino Transf (AST/SGOT) 12 U/L (15-37) Alanine Aminotransferase (ALT/SGPT) 17 U/L (12-78) Alkaline Phosphatase 123 U/L (45-117) Troponin I < 0.015 ng/ml (0-0.045) Total Protein 7.1 gm/dl (6.4-8.2) Albumin 2.9 gm/dl (3.4-5.0) Globulin 4.2 gm/dl (2.5-4.0) Albumin/Globulin Ratio 0.7 (0.9-2) Bedside Glucose 106 mg/dl (70-90) Date/Time Source Procedure Growth Status 02/04/18 14:10 Urine , Clean Catch Urine Culture Pending Received Hemoglobin A1c Test 02/04/18 20:14 Range/Units Estimated Average Glucose 140 mg/dl Hemoglobin A1c 6.5 H 4.5-5.6 % Medical Emergencies . Who to Call and When: Call 911 or go to the Emergency Room if: * If at any time you feel your situation is an emergency * You have tightness or pain in your chest that does not go away with rest or Nitroglycerin * You are very short of breath even with rest . Non-Emergent Contact Non-Emergency issues call your: Primary Care Provider Call Non-Emergent contact if: you have any medication questions . . "Provider Documentation" section prepared by Ralph Hilario. .
[2018-02-05 14:05] VITALS: BP 160/90; PULSE 62; TEMP 36.4; O2SAT 92
--- NOTE | 2018-02-05 14:07 | Discharge Summary ---
Discharge Summary Date of Service Feb 05, 2018. Discharge Summary Admission Date: Feb 04, 2018 at 16:32 Discharge Date: Feb 05, 2018 Discharge Disposition: Home Principal Diagnosis: Fatigue secondary to mild decompensated diastolic HF, improved with several doses of IV furosemide Mild ST/T wave abnormality in anterior leads History of atrial fibrillation on anticoagulation with coumadin, INR monitoring Secondary Diagnoses/Problems: Hypothyroidism Diabetes Mellitus COPD history Medication Reconciliation New Medications: Warfarin Sod (Coumadin) 5 Mg Tab 5 MG PO HS for 5 Days, #1 TAB Continued Medications: Aspirin (Aspirin Ec) 81 Mg Tab 81 MG PO HS Atenolol (Tenormin) 25 Mg Tab 50 MG PO HS, TAB Fluticasone Propionate (Flonase Nasal [place]) 120 Sprays/6000 Mcg [place] 2 SPRAYS [place] DAILY PRN, BTL Furosemide (Lasix) 40 Mg Tab 40 MG PO BID, TAB Levothyroxine Sodium (Synthroid) 25 Mcg Tab 1 TAB PO DAILY for 30 Days, #30 TAB 5 Refills Lisinopril (Zestril) 5 Mg Tab 5 MG PO DAILY, TAB Loratadine (Claritin) 10 Mg Tab 10 MG PO DAILY PRN for ALLERGIES, TAB Pantoprazole (Protonix) 40 Mg Tab 40 MG PO DAILY Potassium Chloride (Potassium Chloride) 20 Meq/15 Ml Elix 1.5 TSP PO DAILY Discontinued Medications: Metformin Hcl (Glucophage) 500 Mg Tab 500 MG PO DAILY, TAB Omeprazole (Prilosec) 20 Mg Capcr 20 MG PO DAILY, CAP Admission Information HPI (per Admitting provider): This is an 82 year old Female with recent cardiac history as summarized above in outpatient 12/28/17 cardiology notes by CAROL Naidu (see assessment and plan section). At that outpatient visit there were plans to do Holter monitor but this was not done yet. And patient presents to the hospital with generalized malaise (described as feel less energy and sleepy), denies chest pain, generally denies shortness of breath (but used albuterol inhaler before sleep yesterday before sleep just in case to help with breathing better with sleeping), denies home oxygen use, denies CPAP use, denies rhinorrhea, denies fever, denies significant lower extremity swelling,and found to have mild CHF exacerbation based on elevated BNP and some pulmonary infiltrates on CXR and mild lower extremity edema. Also noted to have non-specific ST changes when current EKG is compared to that of November 06, 2015 as per the ED physician however patient has had more recent 2017 EKGs as outpatient under [facility] records and Holter monitoring results in 2017. In the ED patient breathing on room air. Patient was about to be given 20 mg IV Lasix when examined by hospitalist physician Physical Exam (per Admitting): General Appearance: WD/WN, no apparent distress Head: normocephalic, atraumatic Eyes: normal inspection, EOMI, sclerae normal ENT: normal ENT inspection, hearing grossly normal, pharynx normal Neck: supple, no adenopathy, no JVD, no carotid bruits, trachea midline Respiratory/Chest: chest non-tender, lungs clear, normal breath sounds, no respiratory distress, no accessory muscle use Cardiovascular: regular rate, rhythm, no edema, no JVD, normal peripheral pulses Abdomen/GI: normal bowel sounds, non tender, soft, no organomegaly Back: normal inspection, no muscle spasm, normal range of motion Extremities/Musculoskelatal: normal inspection, no calf tenderness, normal range of motion, + pertinent finding (trace edema of bilateral lower extremities ) Neurologic/Psych: outside sales account manager II-XII nml as tested, alert, normal mood/affect, oriented x 3 Skin: normal color, warm/dry, no rash Hospital Course Fatigue secondary to mild decompensated diastolic HF, improved with several doses of IV furosemide -admission "CXR Mild cardiomegaly. Prominent pulmonary vasculature. Diaphragms are smooth. Costophrenic angles are sharp. IMPRESSION: Congestive heart failure " -admission BNP 1646 -patient received IV Lasix on ED presentation and overnight and on discharge day -follow up CXR: Pulmonary edema has improved since previous exam. -patient to be discharged on her home dose oral diuretic medication -patient encouraged to limit salty foods Mild ST/T wave abnormality in anterior leads. Negative cardiac enzymes. No chest pain -Dr. Johnson, machine washer, recommend outpatient Lexiscan nuclear stress testing for further risk stratification. No further inpatient cardiac testing at this time. Outpatient Lexiscan and sleep medicine evaluation can be arranged by primary care doctor History of atrial fibrillation on anticoagulation -admission INR 1.7 and 5 mg coumadin was given with INR 1.6 on discharge day -as per patient she had been taking less coumadin recently because her INR was high before -patient should take 5 mg coumadin daily for 5 days or at least until next INR check for adjustments -[facility] appointment line [phone] COPD history -has albuterol inhaler at home -Patient should follow up with primary care doctor whether albuterol is sufficient -consider sleep med evaluation as outpatient as per cardiology Diabetes Mellitus HbA1c 6.5 checked in the hospital -continue metformin as outpatient history of Hypothyroidism -check TSH 2.36 with T4 10.1 while on 25 mcg daily Levothyroxine -continue home dose levothyroxine and follow up with primary care doctor Patient is discharged to home with follow up to 02/06/2018 6:15 PM [facility] 02/09/2018 11:40 AM Mahesh Thomason MD Internal Medicine [facility] (Outpatient Lexiscan and sleep medicine evaluation can be arranged by primary care doctor) [facility] appointment line [phone] for any scheduling reasons patient should take 5 mg coumadin daily for 5 days or at least until next INR check for adjustments Call your Primary Care doctor if any of the following symptoms or problems start or get worse: Shortness of breath or difficulty breathing Wake up at night short of breath Chest pain Cough Swelling of your hands, feet, or legs More fatigued or tired with your normal activity Palpitations - sudden fast heart beats WEIGHT Weigh yourself every morning after using the bathroom. Use the same scale. Wear the same amount of clothing. Write your weight down on a chart. Call your Primary Care doctor if you gain more than 2-3 pounds in 1-2 days. MEDICATIONS Use this discharge instruction sheet for medication instructions. Take your medications at the time your doctor ordered. Do not skip a dose of your medicines. If you miss a dose of medicine, take it as soon as possible, but DO NOT DOUBLE A DOSE. Read your medicine information when you get home. Know all of the side effects of your medicine. If in doubt, ask your pharmacist Call your Primary Care doctor's office if you have any side effects. Be sure all of your doctors know what medicine and herbs you take (including cold, flu, and herbal medicine). Take the following with you to your follow-up doctor appointments: Weight Chart Medication List List of questions Do not drink excessive alcohol, beer or wine. Total time spent on discharge = 40 minutes This includes examination of the patient, discharge planning, medication reconciliation, and communication with other providers. Discharge Instructions see above
== END 2018-02-05 14:30 | disposition home or self-care (01) ==
LOC: C.EDB 13:40 → C.2T 16:32 → ENRESERV 16:52
PROVIDERS: ADMIT Hospitalist; ATTEND Hospitalist
DX: R53.83 Other fatigue (principal); I50.32 Chronic diastolic (congestive) heart failure; I48.91 Unspecified atrial fibrillation; Z79.01 Long term (current) use of anticoagulants; E03.9 Hypothyroidism, unspecified; E11.9 Type 2 diabetes mellitus without complications; J44.9 Chronic obstructive pulmonary disease, unspecified; Z88.5 Allergy status to narcotic agent; I11.0 Hypertensive heart disease with heart failure; E78.5 Hyperlipidemia, unspecified; Z79.899 Other long term (current) drug therapy; Z79.82 Long term (current) use of aspirin

== ENCOUNTER 2020-05-05 16:57 | Inpatient (IN) ==
[2020-05-05] MEDS ORDERED: SODIUM CHLORIDE 0.9% 1000ML 1,000 ML IV STA (17:25)
[2020-05-05] MEDS ORDERED: STAT IV Infusion **Titration per Protocol STA (17:25)
[2020-05-05] MEDS ORDERED: dilTIAZem HCl 5 MG/ML 5 ML VIAL IV STA (17:25)
[2020-05-05] MEDS ORDERED: dilTIAZem HCL 125 MG in DEXTROSE 5% 100 ML IV SCH (17:30)
--- NOTE | 2020-05-05 17:33 | Emergency Department Note ---
Impression & Plan Atrial flutter with rapid ventricular response, Hypokalemia ED Provider Note INFORMANT: [Patient] ED PROVIDER(S): Duane Olguin MD CHIEF COMPLAINT: Rapid heartbeat PLAN: Disposition: Admitted Condition: [Good] MEDICAL DECISION MAKING: Patient presented with rapid heartbeat. She has a history of atrial fib rillation. She was found to have paroxysmal atrial fibrillation and atrial flutter. She would occasionally break and be in the low 100 range with atrial fibrillation but then jump to the mid 140 range and atrial flutter. She noted some lightheadedness. Hemodynamically she was stable as far as her blood pressure. She was given a bolus of IV Cardizem and started on Cardizem drip. Rate control was achieved. The patient was found to have a mildly low potassium. She was given 10 mEq IV and 40 mEq orally in order to boost her potassium levels. The remainder the patient's blood work was unremarkable. Therapeutic INR. Consultation was made with the [facility] service. Patient was admitted by Dr. Costa for further management. Triage Nursing notes reviewed and agree them. [Additional history obtained from] family [Prior medical records reviewed] patient was admitted for fluid overload 2 years ago Vital Signs: reviewed and remarkable for [no significant abnormalities] Differential diagnosis: Premature contractions, electrolyte abnormality, cardiac dysrhythmia, thyroid dysfunction, pulmonary embolism, infection, gastrointestinal, as well as other pathologies. Diagnostics interpreted by me: ECG: Twelve-lead ECG reveals atrial flutter at 143 bpm. There is inferior and posterior Q waves present. Lateral ST depression is present. No ST elevation. No PVCs. Cardiac Monitoring: Cardiac monitoring ordered by me: The patient was placed on continuous cardiac monitoring and observed. It revealed a atrial fibrillation in the low 100s and then atrial flutter at 144 beats per minute. Imaging studies: Chest x-ray. Findings: A chest x-ray was performed and revealed no pneumothorax, effusion, infiltrate, pulmonary edema, free air under the diaphragm, or wide mediastinum. Impression: No acute disease. Consultation(s): [facility] hospitalist service HPI: The patient is a 85 year old female who presents to the Emergency Room with complaints of rapid heart beat. This started 2 days ago and is intermittent. The patient also notes the following associated symptoms, occasional lightheadedness. The patient has found no relieving factors. Current pain is rated as 0/10. She is anticoagulated. SHe has a history of atrial fibrillation. Pt denies LOC, headache, fevers, chills, diaphoresis, visual changes, neck pain, chest pain, breathing difficulties, nausea, vomiting, abdominal pain, back pain, melena, hematochezia, urinary symptoms, numbness, weakness, lymphadenopathy, rash, or other complaints. ROS: See above HPI for pertinent positives & negatives. A total of [10] systems reviewed and were otherwise negative. PAST MEDICAL HISTORY:[See Below] A-Fib PAST SURGICAL HISTORY:[See Below] FAMILY HISTORY:[See Below] SOCIAL HISTORY:[See Below] No Etoh HOME MEDICATIONS:[See Below] ALLERGIES:[See Below] VITALS:[See Below] PHYSICAL EXAMINATION: GENERAL: Awake, alert, well-appearing, in no distress HENT: Normocephalic, atraumatic. Oropharynx unremarkable. EYES: Normal conjunctiva. Sclera non-icteric. NECK: Inspection normal. Non-tender. Supple. No nuchal rigidity. FROM. No masses. RESPIRATORY: Clear to auscultation. No wheezes. No rales. Normal respiratory effort. CARDIAC: Tachycardic rate. irregular rhythm. No murmurs. No rubs. Extremities warm and well perfused. Pulses equal. No JVD. GI: Soft, non-distended. No tenderness to palpation. No rebound or guarding. No masses. RECTAL: Deferred. MUSCULOSKELETAL: Atraumatic. Chest examination reveals no tenderness. The back is symmetrical on inspection without obvious abnormality. There is no CVA tenderness to palpation. No joint edema. LOWER EXTREMITIES: Calves are equal size bilaterally and non-tender. No edema. No discoloration. NEURO: Normal sensorium. No sensory or motor deficits noted. SKIN: No rash or jaundice noted. ED COURSE: [Critical Care:] I have personally spent greater than 31 minutes of critical care time in the direct management of this patient. This includes bedside care, interpretation of diagnostic studies, and testing, discussion with consultants, patient, and family members, and other required patient management activities. These minutes are in excess of all separately billable procedures. Duane Olguin MD Past Med/Surg History Social History Smoking Status: Never smoker Feels Safe at Home: Yes Allergies Allergies Allergy/AdvReac Type Severity Reaction Status Date / Time oxycodone AdvReac Unknown "MAKES ME Verified 05/05/20 17:56 FEEL GOOFY" Home Meds Home Medications Medication Instructions Recorded Confirmed aspirin 81 mg PO HS 05/05/20 05/05/20 atenolol 50 mg PO BID 05/05/20 05/05/20 fluticasone propionate [Flonase 2 spray INTRANASAL DAILY PRN 05/05/20 05/05/20 Allergy Relief] furosemide See Rx Instructions .ROUTE .COMPLEX 05/05/20 05/05/20 levothyroxine 50 mcg PO QAM 05/05/20 05/05/20 lisinopril 5 mg PO HS 05/05/20 05/05/20 loratadine [Claritin] 10 mg PO DAILY PRN 05/05/20 05/05/20 metformin 500 mg PO QAM 05/05/20 05/05/20 pantoprazole 40 mg PO QAM 05/05/20 05/05/20 potassium chloride See Rx Instructions .ROUTE .COMPLEX 05/05/20 05/05/20 rosuvastatin 20 mg PO QAM 05/05/20 05/05/20 warfarin 2.5 mg PO 2XWK 05/05/20 05/05/20 warfarin 5 mg PO 5XWK 05/05/20 05/05/20 Results & Data (ED) Vital Signs Vital Signs - 24 hr 05/05/20 17:07 05/05/20 17:09 05/05/20 17:14 Temperature 36.8 C Temperature Source Oral Pulse Rate 135 H 96 H Pulse Rate [Apical] Pulse Rate from SpO2 Sensor Respiratory Rate 20 14 Respiratory Effort / Characteristics Non-Labored Spontaneous Respiratory Depth Normal Blood Pressure 133/82 128/88 Blood Pressure [Right Arm] Blood Pressure Mean 99 94 Blood Pressure Mean [Right Arm] Blood Pressure Position [Right Arm] Pulse Oximetry 95 95 94 Oxygen Delivery Method Room Air Room Air Sepsis Recent Fever Within 48 Hours No Sepsis New/Unexplained Change in Mental Status No Sepsis Action Taken by Nursing No Action Required 05/05/20 17:30 05/05/20 17:47 05/05/20 18:00 Temperature Temperature Source Pulse Rate 131 H 141 H 142 H Pulse Rate [Apical] Pulse Rate from SpO2 Sensor Respiratory Rate 18 21 Respiratory Effort / Characteristics Respiratory Depth Blood Pressure 121/96 129/94 Blood Pressure [Right Arm] Blood Pressure Mean 109 106 Blood Pressure Mean [Right Arm] Blood Pressure Position [Right Arm] Pulse Oximetry 93 93 90 Oxygen Delivery Method Sepsis Recent Fever Within 48 Hours Sepsis New/Unexplained Change in Mental Status Sepsis Action Taken by Nursing 05/05/20 18:15 05/05/20 18:20 05/05/20 18:27 Temperature Temperature Source Pulse Rate 123 H 83 70 Pulse Rate [Apical] Pulse Rate from SpO2 Sensor 86 72 Respiratory Rate 21 20 20 Respiratory Effort / Characteristics Respiratory Depth Blood Pressure 112/88 107/61 Blood Pressure [Right Arm] Blood Pressure Mean 96 70 Blood Pressure Mean [Right Arm] Blood Pressure Position [Right Arm] Pulse Oximetry 91 91 90 Oxygen Delivery Method Room Air Sepsis Recent Fever Within 48 Hours Sepsis New/Unexplained Change in Mental Status Sepsis Action Taken by Nursing 05/05/20 18:40 05/05/20 18:49 05/05/20 19:15 Temperature Temperature Source Pulse Rate 76 68 Pulse Rate [Apical] 75 Pulse Rate from SpO2 Sensor 75 71 Respiratory Rate 22 22 21 Respiratory Effort / Characteristics Respiratory Depth Blood Pressure 110/61 Blood Pressure [Right Arm] 110/58 L Blood Pressure Mean 82 Blood Pressure Mean [Right Arm] 75 Blood Pressure Position [Right Arm] Pulse Oximetry 91 93 91 Oxygen Delivery Method Room Air Sepsis Recent Fever Within 48 Hours Sepsis New/Unexplained Change in Mental Status Sepsis Action Taken by Nursing 05/05/20 19:50 05/05/20 20:29 05/05/20 20:40 Temperature Temperature Source Pulse Rate Pulse Rate [Apical] 75 96 H 83 Pulse Rate from SpO2 Sensor Respiratory Rate 18 16 23 Respiratory Effort / Characteristics Respiratory Depth Blood Pressure Blood Pressure [Right Arm] 119/63 127/89 120/72 Blood Pressure Mean Blood Pressure Mean [Right Arm] 81 101 88 Blood Pressure Position [Right Arm] Lying Pulse Oximetry 94 97 96 Oxygen Delivery Method Room Air Room Air Room Air Sepsis Recent Fever Within 48 Hours Sepsis New/Unexplained Change in Mental Status Sepsis Action Taken by Nursing 05/05/20 21:02 Temperature Temperature Source Pulse Rate Pulse Rate [Apical] 70 Pulse Rate from SpO2 Sensor Respiratory Rate 22 Respiratory Effort / Characteristics Respiratory Depth Blood Pressure Blood Pressure [Right Arm] 124/67 Blood Pressure Mean Blood Pressure Mean [Right Arm] 86 Blood Pressure Position [Right Arm] Pulse Oximetry 92 Oxygen Delivery Method Room Air Sepsis Recent Fever Within 48 Hours Sepsis New/Unexplained Change in Mental Status Sepsis Action Taken by Nursing Laboratory Data Result diagrams: 05/05/20 17:35 05/05/20 17:35 Lab Results 05/05/20 05/05/20 05/05/20 Range/Units 17:35 17:35 17:35 WBC 6.75 (4.8-10.8) K/uL RBC 4.63 (4.2-5.4) M/uL Hgb 13.4 (12.0-16.0) g/dL Hct 41.7 (37-47) % MCV 90.1 (80-100) fL MCH 28.9 (25-34) pg MCHC 32.1 (32-36) g/dL RDW Std Deviation 49.8 H (36.4-46.3) fL RDW Coeff of Anurag 15.0 H (11.5-14.5) % Plt Count 185 (130-400) K/uL MPV 9.7 (7.4-10.4) fL Immature Gran % (Auto) 0.1 % Neut % (Auto) 68.4 % Lymph % (Auto) 22.8 % [place] % (Auto) 7.4 % Eos % (Auto) 1.2 % Baso % (Auto) 0.1 % Neut # (Auto) 4.61 (1.4-6.5) K/uL Lymph # (Auto) 1.54 (1.2-3.4) K/uL [place] # (Auto) 0.50 (0.11-0.59) K/uL Eos # (Auto) 0.08 (0-0.5) K/uL Baso # (Auto) 0.01 (0-0.2) K/uL Immature Gran # (Auto) 0.01 (0.00-0.02) K/uL PT 20.6 H (9.0-12.0) Seconds INR 2.0 H (0.9-1.1) Sodium 137 (136-145) mmol/L Potassium 3.4 L (3.5-5.1) mmol/L Chloride 99 (98-107) mmol/L Carbon Dioxide 34 H (21-32) mmol/L Anion Gap 4.0 (3-11) BUN 12 (7-18) mg/dl Creatinine 0.90 (0.6-1.2) mg/dl Est Cr Clr Drug Dosing 42.4 ml/min Est GFR ( Amer) 68.5 Est GFR (Non-Af Amer) 59.1 BUN/Creatinine Ratio 12.8 (10-20) Glucose 114 H (70-99) mg/dl Calcium 9.1 (8.5-10.1) mg/dl Magnesium 2.4 (1.8-2.4) mg/dl Total Bilirubin 0.4 (0.2-1) mg/dl AST 14 L (15-37) U/L ALT 17 (12-78) U/L Alkaline Phosphatase 122 H (45-117) U/L Troponin I < 0.015 (0-0.045) ng/ml NT-Pro-B Natriuret Pep 1380 (0-1800) pg/ml Total Protein 7.8 (6.4-8.2) gm/dl Albumin 3.4 (3.4-5.0) gm/dl Globulin 4.4 H (2.5-4.0) gm/dl Albumin/Globulin Ratio 0.8 L (0.9-2) TSH 1.670 (0.300-4.500) uIu/ml Urine Color Urine Appearance (Clear) Urine pH (4.5-7.5) Ur Specific [place] (1.000-1.030) Urine Protein (Negative) Urine Glucose (UA) (Negative) Urine Ketones (Negative) Urine Blood (Negative) Urine Nitrite (Negative) Urine Bilirubin (Negative) Urine Urobilinogen (Negative) Ur Leukocyte Esterase (Negative) Urine WBC (Auto) (0-5) /hpf Urine RBC (Auto) (0-4) /hpf U Hyaline Cast (Auto) (0-5) /lpf U Epithel Cells (Auto) (0-5) /lpf Urine Bacteria (Auto) (Negative) 05/05/20 Range/Units 20:20 WBC (4.8-10.8) K/uL RBC (4.2-5.4) M/uL Hgb (12.0-16.0) g/dL Hct (37-47) % MCV (80-100) fL MCH (25-34) pg MCHC (32-36) g/dL RDW Std Deviation (36.4-46.3) fL RDW Coeff of Anurag (11.5-14.5) % Plt Count (130-400) K/uL MPV (7.4-10.4) fL Immature Gran % (Auto) % Neut % (Auto) % Lymph % (Auto) % [place] % (Auto) % Eos % (Auto) % Baso % (Auto) % Neut # (Auto) (1.4-6.5) K/uL Lymph # (Auto) (1.2-3.4) K/uL [place] # (Auto) (0.11-0.59) K/uL Eos # (Auto) (0-0.5) K/uL Baso # (Auto) (0-0.2) K/uL Immature Gran # (Auto) (0.00-0.02) K/uL PT (9.0-12.0) Seconds INR (0.9-1.1) Sodium (136-145) mmol/L Potassium (3.5-5.1) mmol/L Chloride (98-107) mmol/L Carbon Dioxide (21-32) mmol/L Anion Gap (3-11) BUN (7-18) mg/dl Creatinine (0.6-1.2) mg/dl Est Cr Clr Drug Dosing ml/min Est GFR ( Amer) Est GFR (Non-Af Amer) BUN/Creatinine Ratio (10-20) Glucose (70-99) mg/dl Calcium (8.5-10.1) mg/dl Magnesium (1.8-2.4) mg/dl Total Bilirubin (0.2-1) mg/dl AST (15-37) U/L ALT (12-78) U/L Alkaline Phosphatase (45-117) U/L Troponin I (0-0.045) ng/ml NT-Pro-B Natriuret Pep (0-1800) pg/ml Total Protein (6.4-8.2) gm/dl Albumin (3.4-5.0) gm/dl Globulin (2.5-4.0) gm/dl Albumin/Globulin Ratio (0.9-2) TSH (0.300-4.500) uIu/ml Urine Color Yellow Urine Appearance Cloudy A (Clear) Urine pH 6.5 (4.5-7.5) Ur Specific [place] 1.009 (1.000-1.030) Urine Protein Negative (Negative) Urine Glucose (UA) Negative (Negative) Urine Ketones Negative (Negative) Urine Blood Trace H (Negative) Urine Nitrite Negative (Negative) Urine Bilirubin Negative (Negative) Urine Urobilinogen Negative (Negative) Ur Leukocyte Esterase 3+ H (Negative) Urine WBC (Auto) >30 H (0-5) /hpf Urine RBC (Auto) 0-4 (0-4) /hpf U Hyaline Cast (Auto) 0 (0-5) /lpf U Epithel Cells (Auto) 20-30 H (0-5) /lpf Urine Bacteria (Auto) 1+ H (Negative) Administered Medications Diltiazem HCl 125 mg/ Dextrose 125 mls @ 5 mls/hr IV .Q24H [facility]; Protocol Stop: 06/04/20 17:29 Last Admin: 05/05/20 18:10 Dose: 5 mg/hr, 5 mls/hr Documented by: [id number] Cosigned by: [id number] Discontinued Medications Albuterol (Duoneb) 3 ml NEB NOW STA Stop: 05/05/20 21:10 Last Admin: 05/05/20 21:19 Dose: 3 ml Documented by: [id number] Atenolol (Tenormin) 50 mg PO NOW ONE Stop: 05/05/20 19:49 Last Admin: 05/05/20 20:29 Dose: 50 mg Documented by: [id number] Diltiazem HCl (Cardizem) 10 mg IV NOW STA Stop: 05/05/20 17:26 Last Admin: 05/05/20 18:15 Dose: 10 mg Documented by: [id number] Cosigned by: [id number] Furosemide (Lasix) 40 mg IV NOW STA Stop: 05/05/20 21:12 Last Admin: 05/05/20 21:13 Dose: 40 mg Documented by: [id number] Sodium Chloride (Nss 1000ml) 1,000 mls @ 125 mls/hr IV .Q8H STA Stop: 05/06/20 01:24 Last Infusion: 05/05/20 20:38 Dose: 0 mls/hr Documented by: [id number] Admin: 05/05/20 17:36 Dose: 125 mls/hr Documented by: [id number] Potassium Chloride (K [place] / Wtr) 10 meq in 100 mls @ 100 mls/hr IV ONE ONE Stop: 05/05/20 19:34 Last Infusion: 05/05/20 20:28 Dose: 0 mls/hr Documented by: [id number] Admin: 05/05/20 19:14 Dose: 100 mls/hr Documented by: [id number] Miscellaneous () 1 ea N/A NOW STA Stop: 05/05/20 17:26 Last Admin: 05/05/20 18:10 Dose: 1 ea Documented by: [id number] Potassium Chloride (Klor-Con M20) 40 meq PO NOW STA Stop: 05/05/20 18:36 Last Admin: 05/05/20 19:14 Dose: 40 meq Documented by: [id number] Potassium Chloride (Klor-Con Pwd) 60 meq PO NOW STA Stop: 05/05/20 20:03 Last Admin: 05/05/20 20:09 Dose: Not Given Documented by: [id number] Potassium Chloride (Klor-Con M20) 20 meq PO NOW STA Stop: 05/05/20 20:37 Last Admin: 05/05/20 20:48 Dose: 20 meq Documented by: [id number] Discharge Plan Visit Data Chief Complaint: Tachycardia Stated Complaint: TACHYCARDIA ED Provider: Duane Olguin Discharge Problem: Atrial flutter with rapid ventricular response, Hypokalemia Discharge Instructions Interventions: ED Discharge Assessment Last Done: 05/05/20 21:44
[2020-05-05 17:44] LABS: Basophils # (auto) 0.01 K/uL (0-0.2); Basophils % (auto) 0.1 %; Eosinophils # (auto) 0.08 K/uL (0-0.5); Eosinophils % (auto) 1.2 %; Hematocrit (blood only) 41.7 % (37-47); Hemoglobin 13.4 g/dL (12.0-16.0); Immature Granulocytes # (auto) 0.01 K/uL (0.00-0.02); Immature Granulocytes % (auto) 0.1 %; Lymphocytes # (auto) 1.54 K/uL (1.2-3.4); Lymphocytes % (auto) 22.8 %; Mean Corpuscular Hemoglobin 28.9 pg (25-34); Mean Corpuscular Hgb Conc 32.1 g/dL (32-36); Mean Corpuscular Volume 90.1 fL (80-100); Mean Platelet Volume 9.7 fL (7.4-10.4); Monocytes % (auto) 7.4 %; Neutrophils # (auto) 4.61 K/uL (1.4-6.5); Neutrophils % (auto) 68.4 %; Platelet Count 185 K/uL (130-400); RDW Standard Deviation 49.8 fL (36.4-46.3); Red Blood Count 4.63 M/uL (4.2-5.4); White Blood Count 6.75 K/uL (4.8-10.8)
[2020-05-05 18:04] LABS: Alanine Aminotransferase 17 U/L (12-78); Albumin Level 3.4 gm/dl (3.4-5.0); Aspartate Aminotransferase 14 U/L (15-37); BUN Creatinine Ratio 12.8 (10-20); Blood Urea Nitrogen 12 mg/dl (7-18); Calcium 9.1 mg/dl (8.5-10.1); Carbon Dioxide 34 mmol/L (21-32); Chloride 99 mmol/L (98-107); Creatinine Clr Calc Pharmacy 42.4 ml/min; Est GFR (African American) 68.5; Est GFR (Non-African American) 59.1; Glucose 114 mg/dl (70-99); Magnesium 2.4 mg/dl (1.8-2.4); Potassium 3.4 mmol/L (3.5-5.1); Sodium 137 mmol/L (136-145)
[2020-05-05 18:14] LABS: Albumin Globulin Ratio 0.8 (0.9-2); Alkaline Phosphatase 122 U/L (45-117); Bilirubin,Total 0.4 mg/dl (0.2-1); Globulin 4.4 gm/dl (2.5-4.0); Total Protein 7.8 gm/dl (6.4-8.2); Troponin I < 0.015 ng/ml (0-0.045)
[2020-05-05] MEDS ORDERED: POTASSIUM CHLORIDE / WTR 10 MEQ/100 ML PLCT IV ONE (18:35)
[2020-05-05] MEDS ORDERED: POTASSIUM CHLORIDE 20 MEQ TABCR PO STA ×2 (18:35→20:36)
[2020-05-05 19:27] LABS: Prothrombin Time 20.6 Seconds (9.0-12.0)
[2020-05-05] MEDS ORDERED: ATENOLOL 50 MG TABLET PO ONE (19:48)
[2020-05-05] MEDS ORDERED: POTASSIUM CHLORIDE PWD 20 MEQ PACK PO STA (20:02)
--- NOTE | 2020-05-05 20:19 | XRay Report ---
XR chest 1V portable HISTORY: Tachycardia. COMPARISON: Chest 02/04/2018. FINDINGS: No pneumothorax. No pleural effusions. The heart is mildly enlarged. There are poststernoto my changes. Rotated study. Mild diffuse interstitial and vascular thickening consistent with developi ng pulmonary edema. No focal lung consolidations to suggest pneumonia. Lobular retrocardiac density r emains unchanged and favors a moderate hiatus hernia. IMPRESSION: Mild cardiomegaly with developing pulmonary edema. ACT 112: Negative or not required by law. Electronically signed by: Ricardo Salinas M.D. 05/05/2020 8:17 PM
[2020-05-05 20:50] LABS: Appearance Urine Cloudy (Clear); Bacteria Urine Automated 1+ (Negative); Bilirubin Urine Negative (Negative); Blood Urine Trace (Negative); Cast Urine Automated 0 /lpf (0-5); Color Urine Yellow; Epithelial Cell Urine Auto 20-30 /lpf (0-5); Glucose Urine UA Negative (Negative); Ketones Urine Negative (Negative); Leukocyte Esterase Urine 3+ (Negative); Nitrite Urine Negative (Negative); Protein Urine Negative (Negative); RBC Urine Automated 0-4 /hpf (0-4); Specific Gravity Urine 1.009 (1.000-1.030); Urobilinogen Urine Negative (Negative); WBC Urine Automated >30 /hpf (0-5); pH Urine 6.5 (4.5-7.5)
[2020-05-05 20:57] LABS: NT Pro B Type Natriuretic Pept 1380 pg/ml (0-1800)
--- NOTE | 2020-05-05 21:01 | History & Physical Report ---
Date of Service May 05, 2020 Assessment & Plan (1) Atrial flutter with rapid ventricular response: Recurrent atrial fibrillation/atrial flutter ? Secondary to hypokalemia INR therapeutic chronic diastolic heart failure (EF 60 to 65%, TTE 2018), mild congestion on x- ray hx CAD status post CABG hx sp AVR, PFO closure, AAA reconstruction HTN, stable hyperlipidemia on statin Rx COPD, not in acute exacerbation Breast cancer left status post surgery DM2 on oral medications, well-controlled as of outpatient hemoglobin A1c of 6.20 September 2019 past tobacco abuse PCU Facilitate home beta-faheem Consider switching patient's Atenolol (patient currently dose maximal) to Lopressor if still uncontrolled Wean off Cardizem drip Replace electrolytes Lasix IV 1 dose now Continue home diuretic regimen TTE RE CHF, recurrent AF ISS BG goal [id number], update hemoglobin A1c DVT prophylaxis Coumadin INR goal between 2 and 3 Full code Patient's daughter requesting updates providers. Ms. Gwendolyn Canas, contact #[phone]. Text document was generated using [employer] voice recognition software. It may contain grammatical or spelling errors. Kindly contact undersigned for clarification of any documentation item in question. History of Present Illness Chief Complaint: Fast heartbeat, sent by PCP Primary Care Provider: Conchita Alcocer MD History obtained from patient, family, and records. Medical history significant for chronic diastolic heart failure (EF 60 to 65%, TTE 2018), PAF on Coumadin, CAD status post CABG, history sp AVR, PFO closure, reconstruction of ascending aorta, hypertension, hyperlipidemia, COPD as per records, breast cancer left status post surgery, DM2 on oral medications, past tobacco abuse. Last confinement January 2018 for mild CHF. 2 days ago patient noted palpitations, fast heartbeat at home. Cardiac rate 110s on the monitor. No chest pain, S OB. Usual cough symptoms. No unusual stress. Some bloatedness, minimal right leg swelling. Compliant with home medications. During routine PCP visit today, cardiac rate noted to be 140s. SVT on EKG as per outpatient note. Patient directed to the ER. Patient noted to be in rapid atrial fibrillation/flutter upon arrival at the ER IV Cardizem bolus and drip initiated at the ER. Cardiac rate currently 70 to 80s. Patient complaining of some lightheadedness. Short of breath when she walked out of the bathroom at the ER. 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 Allergies Allergy/AdvReac Type Severity Reaction Status Date / Time oxycodone AdvReac Unknown "MAKES ME Verified 05/05/20 17:56 FEEL GOOFY" Home Medications Home Medications Medication Instructions Recorded Confirmed Type aspirin 81 mg PO HS 05/05/20 05/05/20 History atenolol 50 mg PO BID 05/05/20 05/05/20 History fluticasone propionate [Flonase 2 spray INTRANASAL DAILY PRN 05/05/20 05/05/20 History Allergy Relief] furosemide See Rx Instructions .ROUTE .COMPLEX 05/05/20 05/05/20 History levothyroxine 50 mcg PO QAM 05/05/20 05/05/20 History lisinopril 5 mg PO HS 05/05/20 05/05/20 History loratadine [Claritin] 10 mg PO DAILY PRN 05/05/20 05/05/20 History metformin 500 mg PO QAM 05/05/20 05/05/20 History pantoprazole 40 mg PO QAM 05/05/20 05/05/20 History potassium chloride See Rx Instructions .ROUTE .COMPLEX 05/05/20 05/05/20 History rosuvastatin 20 mg PO QAM 05/05/20 05/05/20 History warfarin 2.5 mg PO 2XWK 05/05/20 05/05/20 History warfarin 5 mg PO 5XWK 05/05/20 05/05/20 History Past Med/Surg History Social History Smoking Status: Unknown if ever smoked Hx Alcohol Use: No Hx Substance Use: No Preferred Language: Divehi Communication Ability: Effective Communication Ability Comment: [place] Room Service Waiter Required: No Beliefs That Will Affect Care: None Current Living Situation: Alone Other Information That Helps Us Care for You: No Feels Safe at Home: Yes Safety Concerns: Feels Safe At This Time Review of Systems Review of Systems: As per HPI, all 10 systems reviewed, all other ROS negative Physical Exam Physical Exam: GENERAL: Comfortable, occasionally has to catch her breath during speech, obese, slightly hard of hearing, looks younger than stated age, no overt respiratory distress SKIN: Normal color, warm HEENT: [place] palpebral conjunctivae, no ptosis, dry buccal mucosa NECK : Supple, short neck, no tenderness CHEST : Decreased breath sounds, expiratory wheezes, no tenderness HEART : Irregular, no obvious murmurs ABDOMEN: Some distention, nontender EXTREMITIES : Minimal RLE swelling, no tenderness, no other conspicuous d eformities noted NEUROLOGIC : Coherent, no facial asymmetry, mild hearing impairment, no other gross focality Results & Data Results & Data ([facility]) Vital Signs (Past 12 Hours) Vital Signs Temp Pulse Pulse Resp BP BP Pulse Ox 05/05/20 20:40 83 23 120/72 96 05/05/20 20:29 96 H 16 127/89 97 05/05/20 19:50 75 18 119/63 94 05/05/20 19:15 75 21 110/58 L 91 05/05/20 18:49 68 22 93 05/05/20 18:40 76 22 110/61 91 05/05/20 18:27 70 20 107/61 90 05/05/20 18:20 83 20 91 05/05/20 18:15 123 H 21 112/88 91 05/05/20 18:00 142 H 21 129/94 90 05/05/20 17:47 141 H 22 93 05/05/20 17:30 131 H 18 121/96 93 05/05/20 17:14 94 05/05/20 17:09 96 H 14 128/88 95 05/05/20 17:07 36.8 C 135 H 20 133/82 95 Laboratory Results Laboratory Results WBC 6.75 K/uL (4.8-10.8) 05/05/20 17:35 RBC 4.63 M/uL (4.2-5.4) 05/05/20 17:35 Hgb 13.4 g/dL (12.0-16.0) 05/05/20 17:35 Hct 41.7 % (37-47) 05/05/20 17:35 MCV 90.1 fL (80-100) 05/05/20 17:35 MCH 28.9 pg (25-34) 05/05/20 17:35 MCHC 32.1 g/dL (32-36) 05/05/20 17:35 RDW Std Deviation 49.8 fL (36.4-46.3) H 05/05/20 17:35 RDW Coeff of Anurag 15.0 % (11.5-14.5) H 05/05/20 17:35 Plt Count 185 K/uL (130-400) 05/05/20 17:35 MPV 9.7 fL (7.4-10.4) 05/05/20 17:35 Immature Gran % (Auto) 0.1 % 05/05/20 17:35 Neut % (Auto) 68.4 % 05/05/20 17:35 Lymph % (Auto) 22.8 % 05/05/20 17:35 [place] % (Auto) 7.4 % 05/05/20 17:35 Eos % (Auto) 1.2 % 05/05/20 17:35 Baso % (Auto) 0.1 % 05/05/20 17:35 Neut # (Auto) 4.61 K/uL (1.4-6.5) 05/05/20 17:35 Lymph # (Auto) 1.54 K/uL (1.2-3.4) 05/05/20 17:35 [place] # (Auto) 0.50 K/uL (0.11-0.59) 05/05/20 17:35 Eos # (Auto) 0.08 K/uL (0-0.5) 05/05/20 17:35 Baso # (Auto) 0.01 K/uL (0-0.2) 05/05/20 17:35 Immature Gran # (Auto) 0.01 K/uL (0.00-0.02) 05/05/20 17:35 PT 20.6 Seconds (9.0-12.0) H 05/05/20 17:35 INR 2.0 (0.9-1.1) H 05/05/20 17:35 Sodium 137 mmol/L (136-145) 05/05/20 17:35 Potassium 3.4 mmol/L (3.5-5.1) L 05/05/20 17:35 Chloride 99 mmol/L (98-107) 05/05/20 17:35 Carbon Dioxide 34 mmol/L (21-32) H 05/05/20 17:35 Anion Gap 4.0 (3-11) 05/05/20 17:35 BUN 12 mg/dl (7-18) 05/05/20 17:35 Creatinine 0.90 mg/dl (0.6-1.2) 05/05/20 17:35 Est Cr Clr Drug Dosing 42.4 ml/min 05/05/20 17:35 Est GFR ( Amer) 68.5 05/05/20 17:35 Est GFR (Non-Af Amer) 59.1 05/05/20 17:35 BUN/Creatinine Ratio 12.8 (10-20) 05/05/20 17:35 Glucose 114 mg/dl (70-99) H 05/05/20 17:35 Calcium 9.1 mg/dl (8.5-10.1) 05/05/20 17:35 Magnesium 2.4 mg/dl (1.8-2.4) 05/05/20 17:35 Total Bilirubin 0.4 mg/dl (0.2-1) 05/05/20 17:35 AST 14 U/L (15-37) L 05/05/20 17:35 ALT 17 U/L (12-78) 05/05/20 17:35 Alkaline Phosphatase 122 U/L (45-117) H 05/05/20 17:35 Troponin I < 0.015 ng/ml (0-0.045) 05/05/20 17:35 NT-Pro-B Natriuret Pep 1380 pg/ml (0-1800) 05/05/20 17:35 Total Protein 7.8 gm/dl (6.4-8.2) 05/05/20 17:35 Albumin 3.4 gm/dl (3.4-5.0) 05/05/20 17:35 Globulin 4.4 gm/dl (2.5-4.0) H 05/05/20 17:35 Albumin/Globulin Ratio 0.8 (0.9-2) L 05/05/20 17:35 TSH 1.670 uIu/ml (0.300-4.500) 05/05/20 17:35 Diagnostic Findings Chest x-ray : Mild cardiomegaly with developing pulmonary edema. EKG as per my interpretation : Rate 145, SVT, normal axis, 1 AVB, incomplete RBBB, T wave abnormalities inferior leads, ST depression anterolateral leads
[2020-05-05] MEDS ORDERED: ALBUT/IPRATROP 3MG/0.5MG NEB 3 ML VIAL NEB STA (21:09)
[2020-05-05] MEDS ORDERED: FUROSEMIDE 40 MG/4 ML VIAL IV STA (21:11)
[2020-05-05] MEDS ORDERED: FLUTICASONE PROPIONATE NA SPR 16 GM BTL PRN (21:52)
[2020-05-05] MEDS ORDERED: GLUCOSE 40% GEL 15 GM TUBE PO PRN (21:52)
[2020-05-05] MEDS ORDERED: ACETAMINOPHEN 325 MG TAB PO PRN (21:52)
[2020-05-05] MEDS ORDERED: GLUCOSE 10 TABS/TUBE PO PRN (21:52)
[2020-05-05] MEDS ORDERED: GLUCAGON FOR INJ 1 MG VIAL SQ PRN (21:52)
[2020-05-05] MEDS ORDERED: TRAMADOL HCL 50 MG TABLET PO PRN (21:52)
[2020-05-05] MEDS ORDERED: NITROGLYCERIN SL 0.4 MG/TAB TAB SL PRN (21:52)
[2020-05-05] MEDS ORDERED: CARBOHYDRATES FOR HYPOGLYCEMIA PO PRN (21:52)
[2020-05-05] MEDS ORDERED: DEXTROSE 50% 50 ML SYRINGE IV PRN (21:52)
[2020-05-05] MEDS ORDERED: LORATADINE 10 MG TAB PO PRN (21:52)
[2020-05-05] MEDS ORDERED: PROMETHAZINE HCL 12.5 MG in SODIUM CHLORIDE 0.9% 50 ML IV PRN (21:52)
[2020-05-05] MEDS ORDERED: WARFARIN SOD 5 MG TAB PO STA (21:59)
[2020-05-05] MEDS: INSULIN ASPART 100 UNITS/ML 3 ML PEN SC SCH (22:29)
[2020-05-06 06:01] LABS: Estimated Average Glucose 137 mg/dl; Hemoglobin A1C 6.4 % (4.5-5.6)
[2020-05-06] MEDS: LEVOTHYROXINE SODIUM 50 MCG TABLET PO SCH (06:07)
[2020-05-06 07:18] LABS: Basophils # (auto) 0.02 K/uL (0-0.2); Basophils % (auto) 0.3 %; Eosinophils # (auto) 0.12 K/uL (0-0.5); Eosinophils % (auto) 1.8 %; Hematocrit (blood only) 39.8 % (37-47); Hemoglobin 12.9 g/dL (12.0-16.0); Immature Granulocytes # (auto) 0.01 K/uL (0.00-0.02); Immature Granulocytes % (auto) 0.1 %; Lymphocytes # (auto) 1.92 K/uL (1.2-3.4); Lymphocytes % (auto) 28.6 %; Mean Corpuscular Hemoglobin 29.2 pg (25-34); Mean Corpuscular Hgb Conc 32.4 g/dL (32-36); Mean Platelet Volume 9.7 fL (7.4-10.4); Monocytes # (auto) 0.65 K/uL (0.11-0.59); Monocytes % (auto) 9.7 %; Neutrophils % (auto) 59.5 %; Platelet Count 194 K/uL (130-400); RDW Standard Deviation 49.6 fL (36.4-46.3); Red Blood Count 4.42 M/uL (4.2-5.4); White Blood Count 6.72 K/uL (4.8-10.8)
[2020-05-06 07:27] LABS: Prothrombin Time 19.9 Seconds (9.0-12.0)
[2020-05-06] MEDS: INSULIN ASPART 100 UNITS/ML 3 ML PEN SC SCH ×4 (07:50→21:16)
[2020-05-06 07:51] LABS: BUN Creatinine Ratio 15.4 (10-20); Calcium 8.6 mg/dl (8.5-10.1); Creatinine Clr Calc Pharmacy 47.2 ml/min; Est GFR (Non-African American) 68.2
[2020-05-06] MEDS: POTASSIUM CHLORIDE 20 MEQ TABCR PO SCH ×2 (07:52→21:13)
[2020-05-06] MEDS: ROSUVASTATIN CALCIUM 20 MG TAB PO SCH (07:52)
[2020-05-06] MEDS: PANTOprazole 40 MG TAB PO SCH (07:53)
[2020-05-06] MEDS: FUROSEMIDE 40 MG TAB PO SCH ×2 (07:53→21:15)
[2020-05-06] MEDS ORDERED: ACETAMINOPHEN 325 MG TAB PO PRN (07:54)
[2020-05-06] MEDS ORDERED: FUROSEMIDE 40 MG in SYRINGE 0 ML IV SCH (09:00)
[2020-05-06] MEDS ORDERED: ATENOLOL 50 MG TABLET PO SCH (09:00)
[2020-05-06] MEDS ORDERED: FUROSEMIDE 40 MG/4 ML VIAL IV SCH (09:00)
[2020-05-06] MEDS ORDERED: LEVOTHYROXINE SODIUM 50 MCG TABLET PO SCH (09:00)
--- NOTE | 2020-05-06 11:16 | Hospitalist Progress Note ---
Date of Service May 06, 2020 Assessment & Plan (1) Atrial flutter with rapid ventricular response: Recurrent atrial fibrillation/atrial flutter and with rapid ventricular response on admission Hypokalemia, mild -serum potassium mildly low as 3.4 on 05/05/2020 presentation, serum potassium at goal after potassium supplementation -tachycardia resolved after IV Cardiazem bolus and 10 minutes of the drip as per nursing staff -05/06/2020 AM updates: Patient seen and examined at the bedside. She is off IV medications. She sits comfortably in the chair upright and breathing on room air. Her daughter in the room. Patient denies chest pain or palpitations. On telemetry, patient has regular heart rate but with atrial fibrillation/atrial flutter. Patient denies other symptoms. She reports she is feeling well. She wishes to walk if the nursing staff allows her. She reports she lives by herself at home and reports good mobility at baseline -echocardiogram completed inpatient with ejection fraction of 55 to 60% and presence of bioprosthetic aortic valve -await cardiology evaluation -INR therapeutic as 2 -continue coumadin chronic diastolic heart failure (EF 60 to 65%, TTE 2017), mild congestion on x- ray hx CAD status post CABG hx AVR, PFO closure, AAA reconstruction -echocardiogram completed inpatient with ejection fraction of 55 to 60% and presence of bioprosthetic aortic valve Hypertension -on home dose atenolol -on lisinopril and statin Diabetes Mellitus Type 2 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 Admission and Anticipated Discharge Date Admission Date: May 05, 2020 Subjective Patient seen and examined at the bedside. She is off IV medications. She sits comfortably in the chair upright and breathing on room air. Her daughter in the room. Patient denies chest pain or palpitations. On telemetry, patient has regular heart rate but with atrial fibrillation/atrial flutter. Patient denies other symptoms. She reports she is feeling well. She wishes to walk if the nursing staff allows her. She reports she lives by herself at home and reports good mobility at baseline Review of Systems Review of Systems: All systems reviewed & are unremarkable except as noted in Subjective Physical Exam Constitutional: comfortable Eyes: PERRL, conjunctivae normal, anicteric sclerae EOM intact bilaterally ENMT: external ear and nose normal, oropharynx normal Neck: trachea midline, no thyromegaly normal visual inspection Respiratory: normal respiratory effort, lungs clear to auscultation Cardiovascular: Rate/Rhythm: regular rate Gastrointestinal (Abdomen): normal bowel sounds, soft, nontender, no hepatosplenomegaly Musculoskeletal: Head/Neck/Chest: normocephalic and head atraumatic Neurologic: PERRL, EOMI, accommodation nl, no face palsy, no dysarthria Psychiatric: A+Ox3, euthymic affect Results & Data Results & Data ([facility]) Vital Signs (Past 12 Hours) Vital Signs Temp Pulse Pulse Resp BP Pulse Ox 05/06/20 07:09 37.0 C 80 18 127/65 92 05/06/20 03:43 36.8 C 67 16 134/74 93 05/05/20 23:24 36.5 C 66 16 116/65 93 05/05/20 23:10 69
--- NOTE | 2020-05-06 12:29 | Electrocardiogram Report ---
Test Reason : Blood Pressure : / mmHG Vent. 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 rate has increased BY [address] now depressed in Anterolateral leads T wave inversion now evident in Anterolateral leads Confirmed by Marshall Breaux ([id number]) on 05/06/2020 12:29:19 PM Referred By: Conchita Alcocer Confirmed By:Marshall Breaux
--- NOTE | 2020-05-06 12:34 | Electrocardiogram Report ---
Test Reason : Blood Pressure : / mmHG Vent. Rate : 069 BPM Atrial Rate : 043 BPM P-R Int : 000 ms QRS Dur : 088 ms QT Int : 422 ms P-R-T Axes : 000 009 018 degrees QTc Int : 452 ms Poor data quality, interpretation may be adversely affected Possible Accelerated Junctional rhythm Inferior infarct (cited on or before 05-NOV-2015) Abnormal ECG When compared with ECG of 05-MAY-2020 17:06, (unconfirmed) Significant changes have occurred Confirmed by Marshall Breaux ([id number]) on 05/06/2020 12:33:44 PM Referred By: Conchita Alcocer Confirmed By:Marshall Breaux
[2020-05-06] MEDS: METOPROLOL TARTRATE 25 MG TAB PO SCH ×2 (12:57→21:14)
--- NOTE | 2020-05-06 14:17 | Cardiology Consultation ---
Date of Consultation May 06, 2020 Assessment & Plan (1) Atrial flutter with rapid ventricular response: (2) Hypokalemia: (3) S/P AVR: (4) CAD (coronary artery disease): (5) Hypertension: It was my pleasure to see Mrs. Short in consultation today. The pathophysiology and treatment options for atrial flutter were discussed with the patient and her daughter at great lengths. Rate versus rhythm control strategies were discussed with the patient. She states that she would like to avoid any procedures whatsoever. I counseled her that since her INR is been therapeutic she will be a candidate for DC cardioversion without the need for TRINI. However, given the fact that she is asymptomatic and on chronic Coumadin therapy she has opted for rate control strategy. Her initial rates were improved with receiving a bolus of IV Cardizem in the ER. At this time I will change her atenolol to metoprolol tartrate for better oral rate control. She should be continued on her Coumadin therapy with a goal INR of 2-3. She did have hypokalemia on presentation which may be a contributing factor and this is being repleted. We will monitor on telemetry overnight. History of Present Illness Reason for Consultation: atrial flutter with rapid ventricular response Requesting Physician: Dr. Hilario Attending Physician: Ralph Hilario MD History of Present Illness It was my pleasure to see Mrs. Short in consultation today. She is a very pleasant 85-year-old woman who normally follows with Syd Naidu of our cardiology practice. She was sent to the emergency department from her PCPs office on 05/05/2020 after she was found to have atrial flutter with rapid ventricular response. Patient states that she is been in her normal state of health lately without any significant complaints. She has been seen by Dr. Alcocer for her annual physical exam. During the examination her pulse was noted to be elevated and an EKG was obtained which showed atrial flutter with rapid ventricular response. She was then directed to the emergency department. She remained completely asymptomatic and denies experiencing chest pain, shortness of breath, palpitations, lightheadedness, dizziness or syncope. She is been taking her medications as directed and her INR has been therapeutic with most recent outpatient testing on March 06 with an INR of 2.48. She remained asymptomatic overnight and states that she feels well. Daughter at the bedside during examination. Cardiac History as per most recent outpatient cardiology visit: 1. 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 Aortic valve replacement (#23 Morgan II), Ascending aorta graft replacement (#26 Gel weave), coronary artery bypass x 1 (aorta-PDA) 2. History of delayed healing of sternotomy and saphenous vein harvest site. 3. History of post operative heart failure and atrial fibrillation. 4. Recurrent atrial fibrillation initially observed in August 2016, without resultant acute decompensated heart failure. Referral for direct current cardioversion declined. Apparent spontaneous conversion back to sinus rhythm between April 2018 and July 2018 with resultant improvement in exercise tolerance and overall functional status 5. CHADS2 Score 4/6 6. Chronic coumadin anticoagulation, initiated in August 2016. 7. Hypertension 8. Dyslipidemia 9. COPD Allergies Allergy/AdvReac Type Severity Reaction Status Date / Time oxycodone AdvReac Unknown "MAKES ME Verified 05/05/20 17:56 FEEL GOOFY" Home Medications Home Medications Medication Instructions Recorded Confirmed Type aspirin 81 mg PO HS 05/05/20 05/05/20 History atenolol 50 mg PO BID 05/05/20 05/05/20 History fluticasone propionate [Flonase 2 spray INTRANASAL DAILY PRN 05/05/20 05/05/20 History Allergy Relief] furosemide See Rx Instructions .ROUTE .COMPLEX 05/05/20 05/05/20 History levothyroxine 50 mcg PO QAM 05/05/20 05/05/20 History lisinopril 5 mg PO HS 05/05/20 05/05/20 History loratadine [Claritin] 10 mg PO DAILY PRN 05/05/20 05/05/20 History metformin 500 mg PO QAM 05/05/20 05/05/20 History pantoprazole 40 mg PO QAM 05/05/20 05/05/20 History potassium chloride See Rx Instructions .ROUTE .COMPLEX 05/05/20 05/05/20 History rosuvastatin 20 mg PO QAM 05/05/20 05/05/20 History warfarin 2.5 mg PO 2XWK 05/05/20 05/05/20 History warfarin 5 mg PO 5XWK 05/05/20 05/05/20 History Patient History Social History Smoking Status: Unknown if ever smoked Hx Alcohol Use: No Hx Substance Use: No Preferred Language: Ukrainian Communication Ability: Effective Communication Ability Comment: SLIGHT [employer]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 No acute distress. HEENT: Normocephalic, atraumatic. Pupils equal, round and reactive to light and accommodation. Extraocular muscles are intact. Anicteric sclera. Moist mucous membranes. Neck: No JVD. No bruit. Cardiovascular: irregularly irregular, unable to appreciate murmur, rub or gallop. Pulmonary: Clear to auscultation bilaterally. No rales, rhonchi, or wheezing. Abdomen: Bowel sounds x 4, soft. No rebound, guarding or tenderness. No organomegaly. Extremities: No clubbing, cyanosis or edema. +2 pedal pulses bilaterally. Skin: Warm and dry. Results & Data ([facility]) Vital Signs (Past 12 Hours) Vital Signs Temp Pulse Resp BP Pulse Ox 05/06/20 12:20 36.7 C 119 H 20 137/68 95 05/06/20 07:09 37.0 C 80 18 127/65 92 05/06/20 03:43 36.8 C 67 16 134/74 93
[2020-05-06] MEDS: METFORMIN HCL 500 MG TAB PO SCH (16:49)
[2020-05-06] MEDS ORDERED: METOPROLOL TARTRATE 1 MG/ML VIAL IV PRN (16:58)
[2020-05-06] MEDS ORDERED: METOPROLOL TARTRATE 1 MG/ML VIAL IV STA ×2 (16:58→17:02)
[2020-05-06] MEDS ORDERED: ASPIRIN 81 MG ECTAB PO SCH (21:00)
[2020-05-06] MEDS ORDERED: lisinopriL 5 MG TAB PO SCH (21:00)
[2020-05-06] MEDS: WARFARIN SOD 5 MG TAB PO SCH (22:26)
[2020-05-07] MEDS ORDERED: XOPENEX/ATROVENT 0.63mg/0.5MG NEB COMBO NEB PRN (05:01)
[2020-05-07] MEDS: METOPROLOL TARTRATE 25 MG TAB PO SCH (05:07)
[2020-05-07] MEDS ORDERED: LEVALBUTEROL HCL 0.63 MG/3 ML NEB NEB PRN (05:15)
[2020-05-07] MEDS ORDERED: IPRATROPIUM BROMIDE NEB SOLN 0.02% 2.5 ML VIAL INH PRN (05:15)
[2020-05-07] MEDS: LEVOTHYROXINE SODIUM 50 MCG TABLET PO SCH (06:20)
[2020-05-07] MEDS: ROSUVASTATIN CALCIUM 20 MG TAB PO SCH (07:49)
[2020-05-07] MEDS: POTASSIUM CHLORIDE 20 MEQ TABCR PO SCH (07:49)
[2020-05-07] MEDS: FUROSEMIDE 40 MG TAB PO SCH (07:49)
[2020-05-07] MEDS: PANTOprazole 40 MG TAB PO SCH (07:50)
[2020-05-07 08:08] LABS: Basophils # (auto) 0.01 K/uL (0-0.2); Basophils % (auto) 0.1 %; Eosinophils # (auto) 0.17 K/uL (0-0.5); Eosinophils % (auto) 2.1 %; Hematocrit (blood only) 42.2 % (37-47); Hemoglobin 13.7 g/dL (12.0-16.0); Immature Granulocytes # (auto) 0.01 K/uL (0.00-0.02); Immature Granulocytes % (auto) 0.1 %; Lymphocytes # (auto) 1.91 K/uL (1.2-3.4); Lymphocytes % (auto) 24.1 %; Mean Corpuscular Hgb Conc 32.5 g/dL (32-36); Mean Corpuscular Volume 89.4 fL (80-100); Mean Platelet Volume 9.9 fL (7.4-10.4); Monocytes # (auto) 0.62 K/uL (0.11-0.59); Monocytes % (auto) 7.8 %; Neutrophils # (auto) 5.19 K/uL (1.4-6.5); Neutrophils % (auto) 65.8 %; Platelet Count 193 K/uL (130-400); RDW Coefficient of Variation 14.9 % (11.5-14.5); RDW Standard Deviation 48.8 fL (36.4-46.3); Red Blood Count 4.72 M/uL (4.2-5.4); White Blood Count 7.91 K/uL (4.8-10.8)
[2020-05-07 08:22] LABS: INR 2.1 (0.9-1.1); Prothrombin Time 21.2 Seconds (9.0-12.0)
[2020-05-07] MEDS: INSULIN ASPART 100 UNITS/ML 3 ML PEN SC SCH ×3 (08:34→17:15)
[2020-05-07 08:36] LABS: Albumin Level 3.4 gm/dl (3.4-5.0); Calcium 9.2 mg/dl (8.5-10.1); Creatinine Clr Calc Pharmacy 41.9 ml/min; Est GFR (African American) 68.5; Est GFR (Non-African American) 59.1; Potassium 3.6 mmol/L (3.5-5.1)
[2020-05-07 08:40] LABS: Albumin Globulin Ratio 0.8 (0.9-2); Bilirubin,Total 0.5 mg/dl (0.2-1); Globulin 4.5 gm/dl (2.5-4.0); Total Protein 7.9 gm/dl (6.4-8.2)
[2020-05-07] MEDS ORDERED: METOPROLOL TARTRATE 25 MG TAB PO ONE ×2 (10:30→14:45)
[2020-05-07] MEDS ORDERED: METOPROLOL TARTRATE 1 MG/ML VIAL IV STA (13:37)
--- NOTE | 2020-05-07 13:53 | Cardiology Progress Note ---
Date of Service May 07, 2020 Assessment & Plan (1) Atrial flutter with rapid ventricular response: (2) Hypokalemia: (3) S/P AVR: (4) CAD (coronary artery disease): (5) Hypertension: The pathophysiology and treatment options for atrial flutter were discussed with the patient and her daughter at great lengths. Rate versus rhythm control strategies were discussed with the patient. She states that she would like to avoid any procedures whatsoever. However, given the fact that she is asymptomatic and on chronic Coumadin therapy she has opted for rate control strategy. Her initial rates were improved with receiving a bolus of IV Cardizem in the ER. Her rates have remained relatively well controlled overnight. We will increase metoprolol to 50 mg p.o. twice daily. Should her rates be controlled by this afternoon okay to discharge from a cardiac standpoint. Follow-up with [facility] clinic for Coumadin management. My office will call to arrange follow-up as an outpatient. Subjective Patient seen and examined, chart reviewed. Daughter once again at bedside. Patient states that she feels well overnight. Remains without complaint and denies any chest pain, shortness of breath, palpitations, lightheadedness, dizziness or syncope. Telemetry reviewed: Atrial flutter with variable AV block. Review of Systems Review of Systems: All systems reviewed & are unremarkable except as noted in HPI & below Physical Exam Physical Exam: General: Awake, alert and oriented x 3. No acute distress. HEENT: Normocephalic, atraumatic. Pupils equal, round and reactive to light and accommodation. Extraocular muscles are intact. Anicteric sclera. Moist mucous membranes. Neck: No JVD. No bruit. Cardiovascular: irregularly irregular, unable to appreciate murmur, rub or gallop. Pulmonary: Clear to auscultation bilaterally. No rales, rhonchi, or wheezing. Abdomen: Bowel sounds x 4, soft. No rebound, guarding or tenderness. No organomegaly. Extremities: No clubbing, cyanosis or edema. +2 pedal pulses bilaterally. Skin: Warm and dry. Results & Data Vital Signs (Past 12 Hours) Vital Signs Temp Pulse Resp BP Pulse Ox 05/07/20 08:26 36.5 C 76 20 119/69 94 05/07/20 05:38 84 18 93 05/07/20 04:30 36.5 C 87 20 128/82 92
[2020-05-07] MEDS ORDERED: METOPROLOL TARTRATE 50 MG TAB PO STA (16:35)
[2020-05-07] MEDS: WARFARIN SOD 5 MG TAB PO SCH (16:39)
[2020-05-07] MEDS: METFORMIN HCL 500 MG TAB PO SCH (16:39)
--- NOTE | 2020-05-07 16:39 | Hospitalist Progress Note ---
Date of Service May 07, 2020 Assessment & Plan (1) Atrial flutter with rapid ventricular response: Recurrent atrial fibrillation/atrial flutter and with rapid ventricular response on admission Hypokalemia, mild -serum potassium mildly low as 3.4 on 05/05/2020 presentation, serum potassium at goal after potassium supplementation -tachycardia resolved after IV Cardiazem bolus and 10 minutes of the drip as per nursing staff -05/06/2020 AM updates: Patient seen and examined at the bedside. She is off IV medications. She sits comfortably in the chair upright and breathing on room air. Her daughter in the room. Patient denies chest pain or palpitations. On telemetry, patient has regular heart rate but with atrial fibrillation/atrial flutter. Patient denies other symptoms. She reports she is feeling well. She wishes to walk if the nursing staff allows her. She reports she lives by herself at home and reports good mobility at baseline -echocardiogram completed inpatient with ejection fraction of 55 to 60% and presence of bioprosthetic aortic valve -INR therapeutic as 2.1, continue coumadin -on this admission patient was transitioned from home dose atenolol to metoprolol. based on telemetry rates, she should be able to tolerate metoprolol tartrate as 50 mg TID (earlier today on 05/07/2020 she only received 25 mg in the AM and because of dosing order transitions, she got additional metoprolol 25 mg in later afternoon, patient to get additional metoprolol 50 mg x 1) - Metoprolol tartrate 50 TID prescription sent [facility] on [address] [place] [id number]. Patient should then have repeat heart rates assessed by primary care doctor to ensure there is no problematic bradycardia 05/14/2020 11:20 AM Provider Conchita Alcocer MD Department Internal Medicine [facility] 05/27/2020 11:00 AM Provider Syd Naidu PA-C Department Cardiology, [facility] 05/29/2020 3:40 PM Provider [facility] Department Pharmacy, [facility] 09/15/2020 4:00 PM Provider Syd Naidu PA-C Department Cardiology [facility] chronic diastolic heart failure (EF 60 to 65%, TTE 2017), mild congestion on x- ray hx CAD status post CABG hx AVR, PFO closure, AAA reconstruction -echocardiogram completed inpatient with ejection fraction of 55 to 60% and presence of bioprosthetic aortic valve Hypertension -on home dose atenolol -on lisinopril and statin Diabetes Mellitus Type 2 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 based on telemetry rates, she should be able to tolerate metoprolol tartrate as 50 mg TID (earlier today she only received 25 mg in the AM and because of dosing order transitions, she got additional metoprolol 25 mg in later afternoon, patient to get additional metoprolol 50 mg x 1) Review of Systems Review of Systems: All systems reviewed & are unremarkable except as noted in Subjective Physical Exam Constitutional: comfortable Eyes: PERRL, conjunctivae normal, anicteric sclerae EOM intact bilaterally ENMT: external ear and nose normal, oropharynx normal Neck: trachea midline, no thyromegaly normal visual inspection Respiratory: normal respiratory effort, lungs clear to auscultation Cardiovascular: Rate/Rhythm: + tachycardic (mild tachycardia in the low 100s) Gastrointestinal (Abdomen): normal bowel sounds, soft, nontender, no hepatosplenomegaly Musculoskeletal: Head/Neck/Chest: normocephalic and head atraumatic Neurologic: PERRL, EOMI, accommodation nl, no face palsy, no dysarthria Psychiatric: A+Ox3, euthymic affect Results & Data Results & Data ([facility]) Vital Signs (Past 12 Hours) Vital Signs Temp Pulse Pulse Resp BP BP Pulse Ox 05/07/20 15:42 36.6 C 108 H 20 158/88 H 92 05/07/20 15:00 98 H 05/07/20 14:33 144 H 135/98 05/07/20 08:26 36.5 C 76 20 119/69 94 05/07/20 05:38 84 18 93
--- NOTE | 2020-05-07 18:07 | Discharge Summary ---
Date of Service May 07, 2020 Admission HPI Per Admitting Provider History obtained from patient, family, and records. Medical history significant for chronic diastolic heart failure (EF 60 to 65%, TTE 2018), PAF on Coumadin, CAD status post CABG, history sp AVR, PFO closure, reconstruction of ascending aorta, hypertension, hyperlipidemia, COPD as per records, breast cancer left status post surgery, DM2 on oral medications, past tobacco abuse. Last confinement January 2018 for mild CHF. 2 days ago patient noted palpitations, fast heartbeat at home. Cardiac rate 110s on the monitor. No chest pain, S OB. Usual cough symptoms. No unusual stress. Some bloatedness, minimal right leg swelling. Compliant with home medications. During routine PCP visit today, cardiac rate noted to be 140s. SVT on EKG as per outpatient note. Patient directed to the ER. Patient noted to be in rapid atrial fibrillation/flutter upon arrival at the ER IV Cardizem bolus and drip initiated at the ER. Cardiac rate currently 70 to 80s. Patient complaining of some lightheadedness. Short of breath when she walked out of the bathroom at the ER. Medical History as above Surgical History : CABG, bioprosthetic AVR, PFO closure, AAA graft reconstruction, distal fibula fracture surgery, laparoscopic hysterectomy/tube removal/oophorectomy, breast biopsy, versus drainage, mastectomy left Family History : Heart disease, stroke Personal/Social history : Past tobacco abuse no EtOH intake, retired [employer] supervisor Principal Diagnosis Atrial flutter with rapid ventricular response: Hypokalemia, mild Hypertension Discharge Exam Constitutional comfortable Eyes PERRL, conjunctivae normal, anicteric sclerae EOM intact bilaterally ENMT external ear and nose normal, oropharynx normal Neck trachea midline, no thyromegaly normal visual inspection Respiratory normal respiratory effort, lungs clear to auscultation Cardiovascular Rate/Rhythm: + tachycardic (mild tachycardia in the low 100s) Gastrointestinal (Abdomen) normal bowel sounds, soft, nontender, no hepatosplenomegaly Musculoskeletal Head/Neck/Chest: normocephalic and head atraumatic Neurologic PERRL, EOMI, accommodation nl, no face palsy, no dysarthria Psychiatric A+Ox3, euthymic affect Discharge Data Allergies Allergy/AdvReac Type Severity Reaction Status Date / Time oxycodone AdvReac Unknown "MAKES ME Verified 05/05/20 17:56 FEEL GOOFY" Consultations 05/05/20 21:52 Consult Cardiology Routine 05/06/20 07:57 Consult Case Management - Discharge Planning Routine Hospital Course (1) Atrial flutter with rapid ventricular response: Recurrent atrial fibrillation/atrial flutter and with rapid ventricular response on admission Hypokalemia, mild -serum potassium mildly low as 3.4 on 05/05/2020 presentation, serum potassium at goal after potassium supplementation -tachycardia resolved after IV Cardiazem bolus and 10 minutes of the drip as per nursing staff -05/06/2020 AM updates: Patient seen and examined at the bedside. She is off IV medications. She sits comfortably in the chair upright and breathing on room air. Her daughter in the room. Patient denies chest pain or palpitations. On telemetry, patient has regular heart rate but with atrial fibrillation/atrial flutter. Patient denies other symptoms. She reports she is feeling well. She wishes to walk if the nursing staff allows her. She reports she lives by herself at home and reports good mobility at baseline -echocardiogram completed inpatient with ejection fraction of 55 to 60% and presence of bioprosthetic aortic valve -INR therapeutic as 2.1, continue coumadin -on this admission patient was transitioned from home dose atenolol to metoprolol. based on telemetry rates, she should be able to tolerate metoprolol tartrate as 50 mg TID (earlier today on 05/07/2020 she only received 25 mg in the AM and because of dosing order transitions, she got additional metoprolol 25 mg in later afternoon, patient then received additional metoprolol 50 mg x 1) - Metoprolol tartrate 50 TID prescription sent [facility] on [address] [place] [id number]. Patient should then have repeat heart rates assessed by primary care doctor to ensure there is no problematic bradycardia. 05/14/2020 11:20 AM Provider Conchita Alcocer MD Department Internal Medicine [facility] 05/27/2020 11:00 AM Provider Syd Naidu PA-C Department Cardiology, [facility] 05/29/2020 3:40 PM Provider [facility] Department Pharmacy, [facility] 09/15/2020 4:00 PM Provider Syd Naidu PA-C Department Cardiology [facility] chronic diastolic heart failure (EF 60 to 65%, TTE 2018), mild congestion on x- ray hx CAD status post CABG hx AVR, PFO closure, AAA reconstruction -echocardiogram completed inpatient with ejection fraction of 55 to 60% and presence of bioprosthetic aortic valve Hypertension -on home dose atenolol -on lisinopril and statin Diabetes Mellitus Type 2 without dip filler current use of insulin -outpatient hemoglobin A1c of 6.20 September 2019 -resume home dose metformin -additional sliding scale insulin if needed past tobacco abuse DVT prophylaxis Coumadin INR goal between 2 and 3 Full code Total Time Total Time Spent Total Time Spent (In Minutes): 40 minutes Total Time Includes: Examination of the Patient, Discharge Planning, Medication Reconciliation and Communication With Other Providers Discharge Plan Discharge Items Patient Disposition: Home - Self-Care Reason For Visit: CHF Discharge Diagnosis: Atrial flutter with rapid ventricular response: Hypokalemia, mild Hypertension Condition on Discharge: Fair Activity: Resume your previous activity Non-emergency contact: Primary Care Provider and Sales Planning Coordinator Call non-emergency contact if: you have any medication questions Follow-up/Referrals: Conchita Salinas MD [Primary Care Provider] - Diet: Carb Consistent or DM2 and Heart Healthy Addtl Attending Provider Instructions: Patient should avoid taking atenolol as her discharge medication is metoprolol. patient reports she has machine to check her pulse/heart rate. target heart rates should be between 65 beats per minute to 100 beats per minute when at home. Metoprolol tartrate 50 TID prescription sent [facility] on [address] [place] [address]. Patient should then have repeat heart rates assessed by primary care doctor to ensure there is no problematic bradycardia 05/14/2020 11:20 AM Provider Conchita Alcocer MD Department Internal Medicine [facility] 05/27/2020 11:00 AM Provider Syd Naidu PA-C Department Cardiology, [facility] 05/29/2020 3:40 PM Provider [facility] Department Pharmacy, [facility] 09/15/2020 4:00 PM Provider Syd Naidu PA-C Department Cardiology [facility] Pending Studies at Discharge: No Stand-Alone Forms: My [facility], Smoking Cessation Medications and DC Order Prescriptions: New metoprolol tartrate 50 mg tablet 50 mg PO TID 30 Days Qty: 90 RF: 0 Continued furosemide 40 mg tablet See Rx Instructions .ROUTE .COMPLEX RF: 0 metformin 500 mg tablet 500 mg PO QAM RF: 0 aspirin 81 mg Tablet,Delayed Release (Dr/Ec) 81 mg PO HS RF: 0 potassium chloride 20 mEq tablet,ER particles/crystals See Rx Instructions .ROUTE .COMPLEX RF: 0 levothyroxine 50 mcg tablet 50 mcg PO QAM RF: 0 pantoprazole 40 mg tablet,delayed release (DR/EC) 40 mg PO QAM RF: 0 warfarin 5 mg tablet 5 mg PO 5XWK RF: 0 warfarin 5 mg tablet 2.5 mg PO 2XWK RF: 0 lisinopril 5 mg tablet 5 mg PO HS RF: 0 fluticasone propionate [Flonase Allergy Relief] 50 mcg/actuation [place],Suspension 2 spray INTRANASAL DAILY PRN (Reason: Allergy Symptoms) RF: 0 loratadine [Claritin] 10 mg Tablet 10 mg PO DAILY PRN (Reason: Allergy Symptoms) RF: 0 rosuvastatin 20 mg tablet 20 mg PO QAM RF: 0 Discontinued atenolol 50 mg tablet 50 mg PO BID RF: 0 Discharge Orders: Discharge Order (Routine); Ordered 05/07/20 Ordered By: Ralph Hilario Admission Data Admit Date/Time: 05/05/20 21:04 Attending Provider: Ralph Hilario Admit Provider: Luc Costa Primary Care Provider: Conchita Salinas Other Providers: Shan Ayoub
[2020-05-07] MEDS ORDERED: METOPROLOL TARTRATE 50 MG TAB PO SCH (21:00)
--- NOTE | 2020-05-07 22:25 | Electrocardiogram Report ---
Test Reason : Blood Pressure : / mmHG Vent. Rate : 140 BPM Atrial Rate : 140 BPM P-R Int : 208 ms QRS Dur : 092 ms QT Int : 272 ms P-R-T Axes : 056 052 -64 degrees QTc Int : 415 ms Supraventricular tachycardia vs atrial flutter RSR' or QR pattern in V1 suggests right ventricular conduction delay Abnormal ECG When compared with ECG of 05-May-2020 20:05, HR has increased by 71 bpm Sinus rhythm has been replaced by SVT/atrial flutter Confirmed by Fermín Stokes ([id number]) on 05/07/2020 10:24:57 PM Referred By: Conchita Alcocer Confirmed By:Fermín Stokes
--- NOTE | 2020-05-07 23:22 | Electrocardiogram Report ---
Test Reason : Blood Pressure : / mmHG Vent. Rate : 095 BPM Atrial Rate : 214 BPM P-R Int : 000 ms QRS Dur : 084 ms QT Int : 362 ms P-R-T Axes : 000 016 000 degrees QTc Int : 454 ms Atrial fibrillation Nonspecific ST and T wave abnormality Possible Inferior infarct Abnormal ECG When compared with ECG of 06-MAY-2020 17:24, Atrial fibrillation is now Present Confirmed by Fermín Stokes ([id number]) on 05/07/2020 11:22:29 PM Referred By: Conchita Alcocer Confirmed By:Fermín Stokes
--- NOTE | 2020-05-07 23:23 | Electrocardiogram Report ---
Test Reason : Blood Pressure : / mmHG Vent. Rate : 107 BPM Atrial Rate : 138 BPM P-R Int : 000 ms QRS Dur : 080 ms QT Int : 360 ms P-R-T Axes : 000 014 -14 degrees QTc Int : 480 ms Atrial fibrillation with rapid ventricular response Inferior infarct , age undetermined Nonspecific ST and T wave abnormality Abnormal ECG When compared with ECG of 07-MAY-2020 13:41, No significant change Confirmed by Fermín Stokes ([id number]) on 05/07/2020 11:23:04 PM Referred By: Conchita Alcocer Confirmed By:Fermín Stokes
[2020-05-08] MEDS ORDERED: WARFARIN SOD 2.5 MG TAB PO SCH (16:00)
== END 2020-05-07 18:30 | disposition home or self-care (01) | DRG 309 ==
LOC: ED 16:57 → 2S 21:04